=== PATIENT | female | born 1995 | race Caucasian/White ===

== ENCOUNTER 2016-05-03 15:32 | Outpatient (CLI) | payer MEDICAID ==
--- NOTE | 2016-05-03 16:00 | L&D Flow Sheet ---
LD Flowsheet Datetime Report Generated by CPN: 05/03/2016 16:00 Datetime: 05/03/2016 15:48 Vital Signs NBP Sys/Marcie/Mean (mmHg): 111 (QS system process) : 68 (QS system process) : 83 (QS system process) Pulse: 100 (QS system process)
[2016-05-03 16:12] LABS: APPEARANCE,URINE CLOUDY; BILIRUBIN,URINE NEGATIVE (NEGATIVE); GLUCOSE, URINE NEGATIVE (NEGATIVE); KETONES,URINE NEGATIVE (NEGATIVE); LEUKOCYTE ESTERASE,URINE LARGE (NEGATIVE); NITRITE,URINE NEGATIVE (NEGATIVE); PROTEIN,URINE NEGATIVE (NEGATIVE); URINE SPECIFIC GRAVITY 1.019; UROBILINOGEN,URINE NEGATIVE mg/dL (<2.0)
[2016-05-03 16:14] LABS: AMNISURE (ROM) NEGATIVE (NEGATIVE)
--- NOTE | 2016-05-03 16:14 | Non Stress Test Report ---
Non Stress Test Datetime Report Generated by CPN: 05/03/2016 16:14 DEMOGRAPHIC Test Number: 1 EGA NST: 38.6 INDICATION Indication for Study: Ordered by Provider Indication for Study (NST) Other: LC MONITORING Monitor Explained: Monitor Explained; Test Explained; Patient Verbalized Understanding Time on Monitor: 05/03/2016 15:47 Time off Monitor: 05/03/2016 16:12 NST Duration: 25 NST INTERVENTIONS NST Interventions: PO Hydration Physician Notified NST: CROWELL BABY A: [id number] BABY A Movement : Present Contraction Frequency : none FHR Baseline : 130 Accelerations : 15X15 Variability : Moderate 6-25bpm NST Review: Meets Criteria for Reactive NST NST Review and Verified By : S AMANUEL RN NST Results: Reactive NST REPORT Report Trigger: Send Report
[2016-05-03 16:29] LABS: URINE BARBITURATES SCREEN NEGATIVE; URINE METHADONE SCREEN NEGATIVE; URINE OPIATES LOW NEGATIVE; URINE PHENCYCLIDINE SCREEN NEGATIVE
== END 2016-05-03 16:43 | disposition home or self-care (01) ==
LOC: LC 15:32
PROVIDERS: ATTEND Obstetrics & Gynecology
PROC: 4A1HXCZ Monitoring of Products of Conception, Cardiac Rate, External Approach (ICD-10-PCS; principal; 2016-05-03)
DX: O47.1 False labor at or after 37 completed weeks of gestation (principal); Z3A.38 38 weeks gestation of pregnancy
CPT/HCPCS: 59025; 84112; 81005; 80307; G0480 ×2

== ENCOUNTER 2016-05-10 06:22 | Inpatient (IN) | payer MEDICAID ==
[2016-05-10 07:11] LABS: APPEARANCE,URINE SLIGHTLY-CLOUDY; BILIRUBIN,URINE NEGATIVE (NEGATIVE); GLUCOSE, URINE NEGATIVE (NEGATIVE); KETONES,URINE NEGATIVE (NEGATIVE); LEUKOCYTE ESTERASE,URINE SMALL (NEGATIVE); NITRITE,URINE NEGATIVE (NEGATIVE); PROTEIN,URINE NEGATIVE (NEGATIVE); URINE SPECIFIC GRAVITY 1.013; UROBILINOGEN,URINE NEGATIVE mg/dL (<2.0)
[2016-05-10 07:27] LABS: URINE BARBITURATES SCREEN NEGATIVE; URINE METHADONE SCREEN NEGATIVE; URINE OPIATES LOW NEGATIVE; URINE PHENCYCLIDINE SCREEN NEGATIVE
--- NOTE | 2016-05-10 08:01 | L&D Flow Sheet ---
LD Flowsheet Datetime Report Generated by CPN: 05/10/2016 08:00 Datetime: 05/10/2016 07:27 Level of Consciousness: Fully Conscious (Nancy Orourke, RN) DTR's/Clonus: DTRs 2+; No Clonus (Nancy Orourke, RN) Headache: Denies (Nancy Orourke, RN) Breath Sounds, Left: Clear and Equal (Nancy Orourke, RN) Breath Sounds, Right: Clear and Equal (Nancy Orourke, RN) Nausea/Vomiting: Denies (Nancy Orourke, RN) RUQ Epigastric Pain: Denies (Nancy Orourke, RN) Datetime: 05/10/2016 07:10 Communication: Report Given to @ Erick Orourke RN (Sonia Hai, RN) Datetime: 05/10/2016 07:00 Monitor Mode: External (Sonia Hai, RN) Frequency (min): 2-3 (Sonia Hai, RN) Quality: Mild/Moderate (Sonia Hai, RN) Duration (sec): 50-90 (Sonia Hai, RN) Resting Tone (Palpate): Relaxed (Sonia Hai, RN) Monitor Mode: External US (Sonia Hai, RN) FHR Baseline Rate : 125 (Sonia Hai, RN) Variability: Moderate 6-25 bpm (Sonia Hai, RN) Accelerations: 15X15 (Sonia Hai, RN) Decelerations: None (Sonia Hai, RN) Datetime: 05/10/2016 06:47 I/O Interventions: Popsicle (Sonia Hai, RN) Datetime: 05/10/2016 06:45 Monitor Mode: External; Palpation (Sonia Valles RN) Frequency (min): 1.5-5 (Sonia Valles RN) Frequency (min): Q10 per pt, getting closer and stronger (Sonia Valles RN) Quality: Mild/Moderate (Sonia Valles RN) Duration (sec): 60-100 (Sonia Valles RN) Resting Tone (Palpate): Relaxed (Sonia Valles RN) Monitor Mode: External US (Sonia Valles RN) FHR Baseline Rate : 135 (Sonia Valles RN) Variability: Moderate 6-25 bpm (Sonia Valles RN) Accelerations: 10X10 (Sonia Valles RN) Decelerations: None (Sonia Valles RN) Pain Scale: 3 (Sonia Valles RN) Pain Presence: None/Denies (Sonia Valles RN) Pain Type: Contraction (Sonia Valles RN) Pain Location: Abdomen; Back (Sonia Valles, SAMANTA) Pain Coping: Talking Through Contractions; Breathing Through Contractions (Sonia Valles RN) Membrane Status: Intact (Sonia Valles RN) Vaginal Bleeding: None (Sonia Valles RN) Level of Consciousness: Fully Conscious (Sonia Valles RN) DTR's/Clonus: DTRs 2+; No Clonus (Sonia Valles RN) Headache: Denies (Sonia Valles SAMANTA) Breath Sounds, Left: Clear and Equal (Sonia Valles, RN) Breath Sounds, Right: Clear and Equal (Sonia Valles, RN) Nausea/Vomiting: Denies (Sonia Valles, RN) RUQ Epigastric Pain: Denies (Sonia Valles RN) Comfort Measures: Breathing/Relaxation (Sonia Valles, RN) Instructional Method: Verbal; Patient Instructed; Family/Support Person Instructed; Verbalized Understanding (Sonia Valles RN) Plan of Care: Plan of Care Discussed (Sonia Valles RN) Datetime: 05/10/2016 06:41 NBP Sys/Marcie/Mean (mmHg): 119 (QS system process) : 88 (QS system process) : 100 (QS system process) Pulse: 105 (QS system process) Respirations: 15 (Sonia Hai, RN) Temperature (F): 97.7 (Sonia Hai, RN) Temperature (C): 36.5 (QS system process) Datetime: 05/10/2016 06:40 Dilatation (cm): 3.5 (Sonia Valles RN) Effacement (%): 50 (Sonia Valles RN) Station: -2 (Sonia Valles RN) Exam by: Sina Valles RN (Sonia Valles RN) Vaginal Bleeding: None (Sonia Valles RN) Cervix, Consistency: Soft (Sonia Valles RN) Cervix, Position: Anterior (Sonia Valles RN) Dilatation (cm): 3-4 cms (Sonia Valles RN) Effacement: 40-50_ effaced (Sonia Valles RN) Station: minus 2 (Sonia Valles RN) Consistency: Soft (Sonia Valles RN) Position: Anterior (Sonia Valles RN) Total Andrews's Score: 8 (QS system process) : 5-8 = Small percentage of induction failure (QS system process)
[2016-05-10] MEDS ORDERED: RINGERS SOLUTION,LACTATED 1,000 ML IV PRN (09:38)
[2016-05-10] MEDS ORDERED: RINGERS SOLUTION,LACTATED 1,000 ML IV ONE (09:38)
[2016-05-10] MEDS ORDERED: BUPIVACAINE HCL 0.25 % INJ/PF (2.5 MG/1 ML) 30 ML VIAL INFIL ONE (09:40)
[2016-05-10] MEDS ORDERED: BENZOIN/ALOE VERA/STORAX/TOLU TINCTURE 60 ML TP PRN (09:40)
[2016-05-10] MEDS ORDERED: FENTANYL/BUPIVACAINE/NS/PF 100 ML EPI PRN (09:40)
[2016-05-10 10:10] LABS: ABSOLUTE EOSINOPHILS # (AUTO) 0.2 10^3/uL (0.0-0.6); ABSOLUTE LYMPHOCYTES (AUTO) 1.5 10^3/uL (0.5-4.7); ABSOLUTE MONOCYTES (AUTO) 0.6 10^3/uL (0.1-1.4); BASOPHILS % (AUTO) 0.4 % (0-2); EOSINOPHILS % (AUTO) 1.3 % (0-6); HEMATOCRIT 33.2 % (36.0-47.0); HGB HCT DIFFERENCE -0.2; LYMPHOCYTES % (AUTO) 12.3 % (13-45); MEAN CORPUSCULAR HEMOGLOBIN 26.8 pg (27.0-33.4); MEAN CORPUSCULAR HGB CONC 33.1 g/dL (32.0-36.0); MEAN CORPUSCULAR VOLUME 81 fl (80-97); MONOCYTES % (AUTO) 4.6 % (3-13); RED BLOOD COUNT 4.09 10^6/uL (3.72-5.28); RED CELL DISTRIBUTION WIDTH 14.7 % (11.5-14.0); SEGMENTED NEUTROPHILS % (AUTO) 81.4 % (42-78); WHITE BLOOD COUNT 12.3 10^3/uL (4.0-10.5)
[2016-05-10] MEDS ORDERED: BUPIVACAINE HCL 0.25 % INJ/PF (2.5 MG/1 ML) 30 ML VIAL ONE (10:20)
[2016-05-10] MEDS ORDERED: FENTANYL/BUPIVACAINE/NS/PF 200 MCG/100 ML RTUINJ EPI ONE (10:20)
[2016-05-10] MEDS ORDERED: EPHEDRINE SULFATE INJ 50 MG/1 ML AMPULE ONE (10:20)
[2016-05-10] MEDS ORDERED: MISOPROSTOL 0.2 MG TABLET ONE (11:56)
[2016-05-10] MEDS ORDERED: LIDOCAINE 1% INJ-PF (10 MG/ML) 30 ML SDV ONE (11:56)
[2016-05-10] MEDS ORDERED: OXYTOCIN/NORMAL SALINE 20 UNIT/1,000 ML RTUINJ ONE (11:57)
[2016-05-10] MEDS ORDERED: DIPH/PERTUSS(ACELL)/TETANUS VAC/PF 0.5 ML SYR (>=10YO) IM PRN (14:25)
[2016-05-10] MEDS ORDERED: ZOLPIDEM TARTRATE 5 MG TABLET PO PRN (14:25)
[2016-05-10] MEDS ORDERED: MEASLES,MUMPS&RUBELLA VACC/PF 0.5 ML VIAL SUBCUT PRN (14:25)
[2016-05-10] MEDS ORDERED: ACETAMINOPHEN WITH CODEINE #3 TABLET PO PRN ×2 (14:25)
[2016-05-10] MEDS ORDERED: OXYTOCIN/NORMAL SALINE 1,000 ML IV PRN (14:25)
--- NOTE | 2016-05-10 14:35 | Admission Physical ---
Datetime Report Generated by CPN: 05/10/2016 14:35 CURRENT ADMISSION Chief Complaint: Uterine Contractions Indication for Induction: Not Applicable Admit Plan: Initiate Labor Protocol Admit Plan- Other: asthma MJ use ALLERGIES Medication Allergies: No Medication Allergies: lactose (05/10/2016); gluten (05/10/2016) Medication Allergies: lactose (02/10/2016); gluten (02/10/2016) Medication Allergies: lactose (03/14/2015); gluten (03/14/2015) Latex: No Latex Allergies Food Allergies: gluten sensitivity OBSTETRICAL HISTORY EDC: 05/11/2016 00:00 : 3 Para: 1 IAB: 1 Livin Gestational Diabetes: No Rh Sensitization: No Incompetent Cervix: No BRISEYDA: No Infertility: No ART Treatment: No Uterine Anomaly: No IUGR: No Hx Previous C/S: No Macrosomia: No Hx Loss/Stillborn: No PIH: No Hx : No Placenta Previa/Abruption: No Depression/PP Depression: No PTL/PROM: No Post Hemorrhage: No Current Procedures: Ultrasound; NST Obstetrical History Comments: G1: 2014 37wks 6.5# M [facility] G2: 03/2015 EAB Ovarian Cyst/ Kidney Infection G3: Current SEE RECORDS Alcohol: No Marijuana : Yes Cocaine: No Other Illicit Drugs: No Cigarettes: Current Everyday Smoker. 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 Surgery: No Heart Disease: No Hosp/Surgery: Yes Autoimmune Disorder: No Anesthetic Complications: No Kidney Disease: No Abnormal Pap Smear: No Neuro/Epilepsy: No Psychiatric Disorders: No Other Medical Diseases: No Hepatitis/Liver Disease: No Significant Family History: No Varicosities/Phlebitis: No Trauma/Violence : No Thyroid Dysfunction: No Medical History Comments: Asthma, Smoker, THC use, Ovarian Cysts, Hospitalization for previous childbirth INFECTIOUS HISTORY Gonorrhea: No Genital Herpes: No Chlamydia: No Tuberculosis: No Syphilis: No Hepatitis: No HIV/AIDS Exposure: No Rash or Viral Illness: No Infectious History Comments: BV PHYSICAL EXAM General: Normal HEENT: Deferred Neurologic: Normal Thyroid: Deferred Heart: Normal Lungs: Normal Breast: Deferred Back: Deferred Abdomen: Normal Genitourinary Exam: Normal Extremities: Normal DTRs: Deferred Pelvic Type: Adequate Physical Exam Comments: cervix exam per RN Vital Signs: Reviewed VAGINAL EXAM Dilatation: 5 MEMBRANES Membranes: Intact FETUS A EGA: 39.6 FHR- Baseline: 120 Variability: Moderate 6-25bpm Decelerations: None Presentation: Vertex Admit Comment: desires epidural PLANS FOR LABOR AND DELIVERY Labor and Delivery: None Pain Management: Epidural Feeding Preference: Formula Benefit of Breast Feed Discussed: Yes Circumcision: N/A INFORMED CONSENT Assignment: Danica Henderson MD Signature: with User ID: Donta : with User ID: [email or web address]
[2016-05-10] MEDS: FERROUS SULFATE 325 MG TABLET PO SCH (17:53)
[2016-05-10] MEDS: DOCUSATE SODIUM 100 MG CAPSULE PO SCH (17:53)
--- NOTE | 2016-05-10 19:01 | L&D Flow Sheet ---
LD Flowsheet Datetime Report Generated by CPN: 05/10/2016 19:00 Datetime: 05/10/2016 14:50 Pain Scale: 0 (Nancy Sharad, RN) Pain Presence: None/Denies (Nancy Sharad, RN) Pain Type: N/A (Nancy Sharad, RN) Datetime: 05/10/2016 13:45 NBP Sys/Marcie/Mean (mmHg): 122 (QS system process) : 71 (QS system process) : 89 (QS system process) Pulse: 103 (QS system process) Datetime: 05/10/2016 13:30 NBP Sys/Marcie/Mean (mmHg): 121 (QS system process) : 67 (QS system process) : 87 (QS system process) Pulse: 96 (QS system process) Datetime: 05/10/2016 13:15 NBP Sys/Marcie/Mean (mmHg): 113 (QS system process) : 68 (QS system process) : 84 (QS system process) Pulse: 77 (QS system process) Datetime: 05/10/2016 13:00 NBP Sys/Marcie/Mean (mmHg): 111 (QS system process) : 61 (QS system process) : 81 (QS system process) Pulse: 85 (QS system process) Datetime: 05/10/2016 12:45 NBP Sys/Marcie/Mean (mmHg): 111 (QS system process) : 55 (QS system process) : 76 (QS system process) Pulse: 85 (QS system process) Datetime: 05/10/2016 12:30 NBP Sys/Marcie/Mean (mmHg): 105 (QS system process) : 58 (QS system process) : 78 (QS system process) Pulse: 93 (QS system process) Datetime: 05/10/2016 12:15 NBP Sys/Marcie/Mean (mmHg): 111 (QS system process) : 71 (QS system process) : 87 (QS system process) Pulse: 100 (QS system process) Respirations: 16 (Nancy Orourke RN) Temperature Route: Oral (Nancy Orourke RN) Pain Scale: 0 (Nancy Orourke RN) Pain Presence: None/Denies (Nancy Orourke RN) Pain Type: N/A (Nancy Orourke RN) Pain Goal: 1 (Nancy Orourke RN) Pain Relief Measures: Comfort Measures (Nancy Orourke RN) Datetime: 05/10/2016 12:10 Stage of : Recovery (Nancy Orourke RN) Datetime: 05/10/2016 12:00 Monitor Mode: External; Palpation (Nancy Orourke RN) Frequency (min): 2-3 (Nancy Orourke RN) Quality: Moderate (Nancy Sharad, RN) Duration (sec): 60-80 (Nancy Orourke, RN) Duration Criteria: Less than Two 120 Second Contractions (Nancy Orourke, RN) Pattern: Normal: <= 5 Contractions in 10 Minutes (Nancy Orourke, RN) Resting Tone (Palpate): Relaxed (Nancy Orourke, RN) Monitor Mode: External US (Nancy Orourke, RN) FHR Baseline Rate : 130 (Nancy Orourke, RN) FHR Baseline Changes: No Baseline Change (Nancy Orourke, RN) Variability: Moderate 6-25 bpm (Nancy Orourke, RN) Accelerations: 15X15 (Nancy Orourke, RN) Decelerations: None (Nancy Orourke, RN) Datetime: 05/10/2016 11:57 Pushing: Coached on Pushing; Urge to Push (Nancy Orourke, RN) Pushing Position: Pushing with Contractions; Pushing Lithotomy (Nancy Orourke, RN) Pushing Progress: Descent with Pushing; Presenting Part Visible (Nancy Orourke, RN) Datetime: 05/10/2016 11:56 Communication Comments: bed broken down (Nancy Orourke, RN) Datetime: 05/10/2016 11:54 Communication Comments: RN to remain at bedside continuosly monitoring FHR and adjusting monitors (Nancy Orourke, RN) Communication Comments: Jama AlvarengaTEODORO at bedside (Nancy Orourke, RN) Datetime: 05/10/2016 11:51 Dilatation (cm): 10.0 (Nancy Orourke, RN) Effacement (%): 100 (Nancy Orourke, RN) Station: 2 (Nancy Orourke, RN) Exam by: Cat Sharad, RN (Nancy Orourke, RN) Datetime: 05/10/2016 11:45 NBP Sys/Marcie/Mean (mmHg): 104 (QS system process) : 56 (QS system process) : 74 (QS system process) Pulse: 85 (QS system process) Datetime: 05/10/2016 11:31 NBP Sys/Marcie/Mean (mmHg): 120 (QS system process) : 71 (QS system process) : 81 (QS system process) Pulse: 102 (QS system process) Datetime: 05/10/2016 11:30 Monitor Mode: External; Palpation (Nancy Orourke RN) Frequency (min): 2.5-3 (Nancy Orourke RN) Quality: Mild/Moderate (Nancy Orourke RN) Duration (sec): 60-80 (Nancy Orourke RN) Duration Criteria: Less than Two 120 Second Contractions (Nancy Orourke RN) Pattern: Normal: <= 5 Contractions in 10 Minutes (Nancy Orourke RN) Resting Tone (Palpate): Relaxed (Nancy Orourke RN) Monitor Mode: External US (Nancy Orourke RN) FHR Baseline Rate : 130 (Nancy Orourke RN) FHR Baseline Changes: No Baseline Change (Nancy Orourke RN) Variability: Moderate 6-25 bpm (Nancy Orourke RN) Accelerations: 15X15 (Nancy Orourke RN) Decelerations: None (Nancy Orourke RN) Datetime: 05/10/2016 11:17 Membrane Status: Ruptured (Nancy Orourke RN) Membranes Rupture Method: Spontaneous (Nancy Orourke RN) Amniotic Fluid Color: Clear (Nancy Orourke, SAMANTA) Amniotic Fluid Amount: Small (Nancy Orourke RN) Amniotic Fluid Odor: Normal (Nancy OrourkeSAMANTA) Datetime: 05/10/2016 11:15 NBP Sys/Marcie/Mean (mmHg): 103 (QS system process) : 62 (QS system process) : 77 (QS system process) Pulse: 91 (QS system process) Datetime: 05/10/2016 11:01 Patient Position/Activity: Left Tilt; Low Fowlers (Nancy Orourke, SAMANTA) Datetime: 05/10/2016 11:00 NBP Sys/Marcie/Mean (mmHg): 119 (QS system process) : 70 (QS system process) : 89 (QS system process) Pulse: 122 (QS system process) Monitor Mode: External; Palpation (Nancy Orourke RN) Frequency (min): 3-4 (Nancy Orourke RN) Quality: Mild/Moderate (Nancy Orourke RN) Duration (sec): 60-120 (Nancy Orourke RN) Duration Criteria: Less than Two 120 Second Contractions (Nancy Orourke RN) Pattern: Normal: <= 5 Contractions in 10 Minutes (Nancy Orourke RN) Resting Tone (Palpate): Relaxed (Nancy Orourke RN) Monitor Mode: External US (aNncy Orourke RN) FHR Baseline Rate : 135 (Nancy Orourke RN) FHR Baseline Changes: No Baseline Change (Nancy Orourke RN) Variability: Moderate 6-25 bpm (Nancy Orourke RN) Accelerations: 15X15 (Nancy Orourke RN) Decelerations: None (Nancy Orourke RN) Datetime: 05/10/2016 10:59 NBP Sys/Marcie/Mean (mmHg): 145 (QS system process) : 87 (QS system process) : 107 (QS system process) Pulse: 114 (QS system process) Datetime: 05/10/2016 10:56 NBP Sys/Marcie/Mean (mmHg): 95 (QS system process) : 54 (QS system process) : 71 (QS system process) Pulse: 82 (QS system process) Datetime: 05/10/2016 10:55 NBP Sys/Marcie/Mean (mmHg): 94 (QS system process) : 52 (QS system process) : 67 (QS system process) Pulse: 96 (QS system process) Datetime: 05/10/2016 10:54 NBP Sys/Marcie/Mean (mmHg): 113 (QS system process) : 68 (QS system process) : 82 (QS system process) Pulse: 97 (QS system process) I/O Interventions: Mares Cath Inserted (Nancy Sharad, RN) Datetime: 05/10/2016 10:53 NBP Sys/Marcie/Mean (mmHg): 96 (QS system process) : 51 (QS system process) : 68 (QS system process) Pulse: 116 (QS system process) Datetime: 05/10/2016 10:52 NBP Sys/Marcie/Mean (mmHg): 101 (QS system process) : 56 (QS system process) : 72 (QS system process) Pulse: 102 (QS system process) Datetime: 05/10/2016 10:51 NBP Sys/Marcie/Mean (mmHg): 105 (QS system process) : 60 (QS system process) : 75 (QS system process) Pulse: 112 (QS system process) Datetime: 05/10/2016 10:50 NBP Sys/Marcie/Mean (mmHg): 111 (QS system process) : 65 (QS system process) : 81 (QS system process) Pulse: 100 (QS system process) Datetime: 05/10/2016 10:49 NBP Sys/Marcie/Mean (mmHg): 111 (QS system process) : 58 (QS system process) : 79 (QS system process) Pulse: 103 (QS system process) Datetime: 05/10/2016 10:48 NBP Sys/Marcie/Mean (mmHg): 117 (QS system process) : 71 (QS system process) : 87 (QS system process) Pulse: 106 (QS system process) Datetime: 05/10/2016 10:47 NBP Sys/Marcie/Mean (mmHg): 118 (QS system process) : 75 (QS system process) : 89 (QS system process) Pulse: 93 (QS system process) Datetime: 05/10/2016 10:46 NBP Sys/Marcie/Mean (mmHg): 117 (QS system process) : 72 (QS system process) : 87 (QS system process) Pulse: 96 (QS system process) Datetime: 05/10/2016 10:45 NBP Sys/Marcie/Mean (mmHg): 126 (QS system process) : 80 (QS system process) : 96 (QS system process) Pulse: 94 (QS system process) Pulse: 90 (QS system process) SpO2 (%): 100 (QS system process) Datetime: 05/10/2016 10:44 NBP Sys/Marcie/Mean (mmHg): 130 (QS system process) : 78 (QS system process) : 97 (QS system process) Pulse: 86 (QS system process) Datetime: 05/10/2016 10:43 NBP Sys/Marcie/Mean (mmHg): 128 (QS system process) : 83 (QS system process) : 102 (QS system process) Pulse: 94 (QS system process) Datetime: 05/10/2016 10:42 NBP Sys/Marcie/Mean (mmHg): 139 (QS system process) : 92 (QS system process) : 109 (QS system process) Pulse: 95 (QS system process) Datetime: 05/10/2016 10:41 NBP Sys/Marcie/Mean (mmHg): 130 (QS system process) : 74 (QS system process) : 96 (QS system process) Pulse: 88 (QS system process) Epidural Positioning: Sitting (aNncy Orourke RN) Epidural Procedure: Cath Placed; Test Dose (Nancy Orourke RN) Datetime: 05/10/2016 10:40 NBP Sys/Marcie/Mean (mmHg): 139 (QS system process) : 82 (QS system process) : 105 (QS system process) Pulse: 87 (QS system process) SpO2 (%): 100 (QS system process) Datetime: 05/10/2016 10:35 NBP Sys/Marcie/Mean (mmHg): 129 (QS system process) : 75 (QS system process) : 96 (QS system process) Pulse: 90 (QS system process) SpO2 (%): 100 (QS system process) Datetime: 05/10/2016 10:32 Pulse: 93 (QS system process) SpO2 (%): 94 (QS system process) Comments: tracing maternal HR, patient sitting for epidural, RN at bedside (Nancy Orourke RN) Procedure Verify: Correct Patient Identity; Correct Side and Site are Marked; Accurate Procedure Consent Form; Agreement on Procedure to be Done; Correct Patient Position; Relevant Images and Results are Properly Labeled and Displayed; Addressed Need to Administer Antibiotics or Fluids for Irrigation; Safety Precautions Based on Patient History or Medication Use (Nancy Orourke RN) Anesthesia Plans: Epidural (Nancy Orourke RN) Epidural Positioning: Sitting (Nancy Orourke RN) Datetime: 05/10/2016 10:31 Procedure Verify: Correct Patient Identity; Correct Side and Site are Marked; Accurate Procedure Consent Form; Agreement on Procedure to be Done; Correct Patient Position; Relevant Images and Results are Properly Labeled and Displayed; Addressed Need to Administer Antibiotics or Fluids for Irrigation; Safety Precautions Based on Patient History or Medication Use (Nancy Orourke RN) Anesthesia Plans: Epidural (Nancy Orourke RN) Datetime: 05/10/2016 10:30 Pulse: 93 (QS system process) SpO2 (%): 100 (QS system process) Monitor Mode: External; Palpation (Nancy Orourke RN) Frequency (min): 2.5-3.5 (Nancy Orourke RN) Quality: Mild/Moderate (Nancy Orourke RN) Duration (sec): 60-80 (Nancy Orourke, RN) Duration Criteria: Less than Two 120 Second Contractions (Nancy Orourke, RN) Pattern: Normal: <= 5 Contractions in 10 Minutes (Nancy Orourke, RN) Resting Tone (Palpate): Relaxed (Nancy Orourke, RN) Monitor Mode: External US (Nancy Orourke, RN) FHR Baseline Rate : 135 (Nancy Orourke, RN) FHR Baseline Changes: No Baseline Change (Nancy Orourke, SAMANTA) Variability: Moderate 6-25 bpm (Nancy Orourke, RN) Accelerations: 15X15 (Nancy Orourke, RN) Decelerations: None (Nancy Orourke, RN) Datetime: 05/10/2016 10:21 NBP Sys/Marcie/Mean (mmHg): 119 (QS system process) : 77 (QS system process) : 95 (QS system process) Pulse: 93 (QS system process) Datetime: 05/10/2016 10:04 Patient Care Comments: consents signed (Nancy Orourke RN) Datetime: 05/10/2016 10:00 Monitor Mode: External; Palpation (Nancy Orourke RN) Frequency (min): 3-4 (Nancy Orourke RN) Quality: Mild/Moderate (Nancy Orourke RN) Duration (sec): 70-80 (Nancy Orourke RN) Duration Criteria: Less than Two 120 Second Contractions (Nancy Orourke RN) Pattern: Normal: <= 5 Contractions in 10 Minutes (Nancy Orourke RN) Resting Tone (Palpate): Relaxed (Nancy Orourke RN) Monitor Mode: External US (Nancy Orourke RN) FHR Baseline Rate : 135 (Nancy Orourke RN) FHR Baseline Changes: No Baseline Change (Nancy Orourke RN) Variability: Moderate 6-25 bpm (Nancy Orourke RN) Accelerations: 15X15 (Nancy Orourke RN) Decelerations: None (Nancy Orourke RN) Patient Care Comments: labs drawn (Nancy Orourke RN) Procedure Verify: Correct Patient Identity; Accurate Procedure Consent Form; Agreement on Procedure to be Done; Correct Patient Position; Relevant Images and Results are Properly Labeled and Displayed; Addressed Need to Administer Antibiotics or Fluids for Irrigation; Safety Precautions Based on Patient History or Medication Use (Nancy Orourke RN) Anesthesia Plans: Epidural (Nancy Orourke RN) Datetime: 05/10/2016 09:51 NBP Sys/Marcie/Mean (mmHg): 127 (QS system process) : 81 (QS system process) : 96 (QS system process) Pulse: 89 (QS system process) Datetime: 05/10/2016 09:31 IV/Blood Work: IV Started; IV Bolus Started (Nancy Orourke RN) Datetime: 05/10/2016 09:30 Monitor Mode: External; Palpation (Nancy Sharad, RN) Frequency (min): 2-3 (Nancy Sharad, RN) Quality: Mild/Moderate (Nancy Sharad, RN) Duration (sec): 70-80 (Nancy Sharad, RN) Duration Criteria: Less than Two 120 Second Contractions (Nancy Sharad, RN) Pattern: Normal: <= 5 Contractions in 10 Minutes (Nancy Sharad, RN) Resting Tone (Palpate): Relaxed (Nancy Sharad, RN) Monitor Mode: External US (Nancy Sharad, RN) FHR Baseline Rate : 130 (Nancy Sharad, RN) FHR Baseline Changes: No Baseline Change (Nancy Sharad, RN) Variability: Moderate 6-25 bpm (Nancy Sharad, RN) Accelerations: 15X15 (Nancy Sharad, RN) Decelerations: None (Nancy Sharad, RN) Datetime: 05/10/2016 09:12 Communication Comments: order received from Jama Alvarenga CNM to admit patient (Nancy Sharad, RN) Datetime: 05/10/2016 09:11 Dilatation (cm): 5.0 (Nancy Orourke RN) Effacement (%): 80 (Nancy Orourke RN) Station: -2 (Nancy Orourke RN) Exam by: Cat Orourke RN (Nancy Orourke RN) Vaginal Bleeding: Scant (Nancy Orourke RN) Cervix, Consistency: Soft (Nancy Orourke RN) Cervix, Position: Midposition (Nancy Orourke RN) Datetime: 05/10/2016 08:08 NBP Sys/Marcie/Mean (mmHg): 111 (QS system process) : 76 (QS system process) : 89 (QS system process) Pulse: 97 (QS system process) Datetime: 05/10/2016 08:07 Dilatation (cm): 4.0 (Nancy Orourke RN) Effacement (%): 60 (Nancy Orourke RN) Station: -2 (Nancy Orourke RN) Exam by: Cat Orourke RN (Nancy Orourke, SAMANTA) Vaginal Bleeding: Scant (Nancy Orourke, RN) Cervix, Consistency: Soft (Nancy Orourke, RN) Cervix, Position: Midposition (Nancy Orourke, RN) Datetime: 05/10/2016 07:27 Level of Consciousness: Fully Conscious (Nancy Orourke, RN) DTR's/Clonus: DTRs 2+; No Clonus (Nancy Orourke, RN) Headache: Denies (Nancy rOourke, RN) Breath Sounds, Left: Clear and Equal (Nancy Orourke RN) Breath Sounds, Right: Clear and Equal (Nancy Orourke RN) Nausea/Vomiting: Denies (Nancy Orourke, RN) RUQ Epigastric Pain: Denies (Nancy Orourke, RN) Datetime: 05/10/2016 07:20 Communication Comments: monitors removed for patient ambulation (Nancy Orourke, RN) Datetime: 05/10/2016 07:10 Communication: Report Given to @ [facility] RN (Sonia Hai, RN) Datetime: 05/10/2016 07:00 Monitor Mode: External (Sonia Hai, RN) Frequency (min): 2-3 (Sonia Hai, RN) Quality: Mild/Moderate (Sonia Hai, RN) Duration (sec): 50-90 (Sonia Hai, RN) Resting Tone (Palpate): Relaxed (Sonia Hai, RN) Monitor Mode: External US (Sonia Hai, RN) FHR Baseline Rate : 125 (Sonia Hai, RN) Variability: Moderate 6-25 bpm (Sonia Hai, RN) Accelerations: 15X15 (Sonia Hai, RN) Decelerations: None (Sonia Hai, RN)
[2016-05-10] MEDS: IBUPROFEN 800 MG TABLET PO SCH (22:21)
[2016-05-10] MEDS: HYDROCODONE/ACETAMINOPHEN 5-325 MG TABLET PO PRN (22:36)
[2016-05-11] MEDS: HYDROCODONE/ACETAMINOPHEN 5-325 MG TABLET PO PRN ×4 (03:19→20:20)
--- NOTE | 2016-05-11 06:01 | L&D Current Admission ---
Current Admit Datetime Report Generated by CPN: 05/11/2016 06:00 ADMISSION INFORMATION Current Admit Date/Time: 05/10/2016 09:30 (05/10/2016 06:45:Nancy Orourke RN) Reason for Admission: Onset of Labor (05/10/2016 06:45:Nancy Orourke RN) Chief Complaint: Contractions (05/10/2016 06:45:oSnia Valles RN) Medications During : Albuterol MDI; Vitamin (05/10/2016 06:45:Nancy Orourke RN) EGA per Dates: 39.6 (05/10/2016 06:45:QS system process) Admitted From: Home (05/10/2016 06:45:Nancy Orourke RN) Reason for Induction: Not Applicable (05/10/2016 06:45:Nancy Orourke RN) Records Available: Yes (05/10/2016 06:45:Nancy Orourke RN) General Admission Information: Reviewed (05/10/2016 06:45:Nancy Orourke RN) BELONGINGS/ADVANCED DIRECTIVES Valuables/Personal Effects: Purse/Wallet; Cell Phone (05/10/2016 06:45:Nancy Orourke RN) Disposition of Belongings: Kept with Patient (05/10/2016 06:45:Nancy Orourke RN) Advance Direct for Healthcare: No, and Wants No Information (05/10/2016 06:45:Nancy Orourke RN) Durable Power of Foley Artist: No (05/10/2016 06:45:Nancy Orourke RN) Living Will: No (05/10/2016 06:45:Nancy Orourke RN) Organ Donor: No (05/10/2016 06:45:Nancy Orourke RN) Pt Rights Information Given: Yes (05/10/2016 06:45:Nancy Orourke RN) LEARNING ASSESSMENT Knowledge Level: Understands L_D Process (05/10/2016 06:45:Nancy Orourke RN) Learning Readiness: Motivated (05/10/2016 06:45:Nancy Orourke RN) DOMESTIC VIOLANCE SCREENING Dom Viol Threatened/Hurt: No (05/10/2016 06:45:Nancy Orourke RN) Hx of Abuse/Neglect past 2yrs: No (05/10/2016 06:45:Nancy Orourke RN) Feel Unsafe Going Home: No (05/10/2016 06:45:Nancy Orourke RN) Addt'l Observ Indicating Abuse: No (05/10/2016 06:45:Nancy Orourke RN) Reason Unable to Complete Screen: N/A, Screen Completed (05/10/2016 06:45:Nancy Orourke RN) Considered Personal Harm/Suicide: No (05/10/2016 06:45:Nancy Orourke RN) NUTRITIONAL/FUNCTIONAL SCREENING Problem with Appetite >5 Days: No (05/10/2016 06:45:Nancy Orourke RN) Chew/Swallow Difficulties: No (05/10/2016 06:45:Nancy Orourke RN) Inappropriate Wt Gain/Loss: No (05/10/2016 06:45:Nancy Orourke RN) Presence Skin Breakdown/Ulcer: No (05/10/2016 06:45:Nancy Orourke RN) Special Diet: No (05/10/2016 06:45:Nancy Sharad, RN) Pt Requests Broodmare Foreman Visit: No (05/10/2016 06:45:Nancy Orourke RN) Hx of Any of the Following?: N/A (05/10/2016 06:45:Nancy Orourke RN) New Diagnosis of: N/A (05/10/2016 06:45:Nancy Orourke RN) Requires Assist w/Ambulation: No (05/10/2016 06:45:Nancy Orourke RN) Uses Assist Device to Ambulate: No (05/10/2016 06:45:Nancy Orourke RN) Pt Requires Help w/ADL's: No (05/10/2016 06:45:Nancy Orourke RN)
--- NOTE | 2016-05-11 06:01 | L&D General Admission ---
General Admit Datetime Report Generated by CPN: 05/11/2016 06:00 INFORMATION Patient Age: 20 (02/10/2016 12:18:QS system process) EDC: 05/11/2016 00:00 (02/10/2016 12:27:Nancy Orourke RN) : 3 (02/10/2016 12:27:Nancy Orourke RN) Para: 1 (02/10/2016 12:27:Nancy Orourke RN) Induced Abortions: 1 (02/10/2016 12:27:Geovany Lancaster RN) Livin (02/10/2016 12:27:Geovany Lancaster RN) Baby, Number in Womb: 1 (02/10/2016 12:27:Geovany Lancaster RN) CARE Primary Project Structural Engineer: [facility] Department (02/10/2016 12:27:Geovany Lancaster RN) Project Structural Engineer Other: [facility] (02/10/2016 12:27:Geovany Lancaster RN) Month of 1st Visit: November (02/10/2016 12:27:Geovany Lancaster RN) Prepregnancy Weight (lb): 130 (02/10/2016 12:27:Geovany Lancaster RN) Prepregnancy Weight (kg): 59.1 (02/10/2016 12:27:QS system process) Height (in): 67 (05/10/2016 16:30:QS system process) ALLERGIES Medication Allergy: No (02/10/2016 12:27:Nancy Orourke RN) Medication Allergies: lactose (05/10/2016); gluten (05/10/2016) (05/10/2016 06:32:QS system process) Latex Allergy: No Latex Allergies (02/10/2016 12:27:Nancy Orourke RN) Food Allergies: gluten sensitivity (02/10/2016 12:27:Nancy Orourke RN) COMMUNICATION Primary Language: Ukrainian (02/10/2016 12:27:Sonia Valles RN) Medical Tx Preferred Language: Ukrainian (02/10/2016 12:27:Sonia Valles RN) DEMOGRAPHICS Address: [address] [place] [id number] (05/03/2016 16:05:QS system process) Zipcode: [address] (05/03/2016 16:05:QS system process) Home (05/03/2016 15:33:QS system process) SSN: [id number] (02/10/2016 12:18:QS system process) Next of Kin Name: WILIAN LOJA (02/10/2016 12:18:QS system process) Next of Kin (05/03/2016 16:05:QS system process) Next of Kin Relationship: OR (02/10/2016 12:18:QS system process) Date of : 1995 (02/10/2016 12:18:QS system process) Marital Status: Single (02/10/2016 12:18:QS system process) Sex: Female (02/10/2016 12:18:QS system process) Race: (02/10/2016 12:18:QS system process) Ethnicity: Non- or (02/10/2016 12:18:QS system process) Presybeterian: None (02/10/2016 12:18:QS system process) DRUG AND ALCOHOL USE Alcohol: No (02/10/2016 12:27:Nancy Orourke RN) Cigarettes: Current Everyday Smoker. [id number] (02/10/2016 12:27:Sonia Valles RN) Marijuana: Yes (02/10/2016 12:27:Nancy Orourke RN) Cocaine: No (02/10/2016 12:27:Nancy Orourke RN) Other Illicit Drugs: No (02/10/2016 12:27:Nancy Orourke RN) VACCINE HISTORY Influenza Vaccine: Yes (02/10/2016 12:27:Sonia Valles RN) Pneumococcal Vaccine: No (02/10/2016 12:27:Sonia Valles RN) Tetanus Vaccine: Yes (02/10/2016 12:27:Sonia Valles RN) Tdap Vaccine: Yes (02/10/2016 12:27:Sonia Valles RN) Hepatitis B Vaccine: Yes (02/10/2016 12:27:Sonia Valles RN) Feeding Preference: Formula (02/10/2016 12:27:Sonia Valles RN) Benefit of Breast Feed Discussed: Yes (02/10/2016 12:27:Sonia Valles RN) Circumcision: N/A (02/10/2016 12:27:Nancy Orourke RN) Classes Attended: No (02/10/2016 12:27:Nancy Orourke RN) Tubal Ligation: No (02/10/2016 12:27:Nancy Orourke RN) Tubal Authorization Signed: N/A (02/10/2016 12:27:Nancy Orourke RN) Consent: N/A (02/10/2016 12:27:Nancy Orourke RN) Consent Signed: N/A (02/10/2016 12:27:Nancy Orourke RN) Pain Management Plans: Epidural (02/10/2016 12:27:Nancy Orourke RN) Plans for Labor and Delivery: None (02/10/2016 12:27:Nancy Orourke RN) Support Person: Wilian Loja (02/10/2016 12:27:Sonia Valles RN) Support Person Relationship: Significant Other (02/10/2016 12:27:Sonia Valles RN) Cultural/Spritual Practice: No (02/10/2016 12:27:Nancy Orourke RN) Spir/Cult Dietary Needs: No (Annotations: Data stored by CPN on behalf of user) (02/10/2016 12:27:Nancy Orourke RN) LIVING SITUATION/DISCHARGE PLAN Living Arrangements: House (02/10/2016 12:27:Sonia Valles RN) Adequate Access to:: Electric; Heat; Refrigeration; Plumbing/Running water; Phone; Transportation (02/10/2016 12:27:Sonia Valles RN) WIC Program: No (02/10/2016 12:27:Sonia Valles RN) Discharge Overlay Plastician Person: Wilian Loja (02/10/2016 12:27:Sonia Valles RN) Person to Help after Discharge: Wilian Loja (02/10/2016 12:27:Sonia Valles RN) Car Seat for Discharge: Yes (02/10/2016 12:27:Sonia Valles RN) Adoption Requested: No (02/10/2016 12:27:Sonia Valles RN) Pt Contact w/ Post : N/A (02/10/2016 12:27:Sonia Valles RN) LABS Blood Type: A Positive (02/10/2016 12:27:Geovany Lancaster RN) Antibody Screen: NEGATIVE (02/10/2016 12:27:Geovany Lancaster RN) Hemoglobin: 12.0-15.5 g/dL (05/11/2016 06:00:QS system process) Hematocrit: 33.2 L (05/10/2016 09:58:QS system process) MCV: 81 (05/10/2016 09:58:QS system process) Group Beta Strep: NEGATIVE (02/10/2016 12:27:Geovany Lancaster RN) Gonorrhea: Negative (02/10/2016 12:27:Geovany Lancaster RN) Chlamydia: Negative (02/10/2016 12:27:Geovany Lancaster RN) RPR/VDRL: Nonreactive (02/10/2016 12:27:Geovany Lancaster RN) HIV Exposure Test: Negative (02/10/2016 12:27:Geovany Lancaster RN) Hepatitis B: Negative (02/10/2016 12:27:Geovany Lancaster RN) Rubella: Non-Immune (02/10/2016 12:27:Geovany Lancaster RN) Varicella: Non Immune (02/10/2016 12:27:Geovany Lancaster RN) OB/PREVIOUS HISTORY Previous Procedures: Ultrasound (02/10/2016 12:27:Nancy Orourke RN) Current Procedures: Ultrasound; NST (02/10/2016 12:27:Nancy Orourke RN) History of Previous : No (02/10/2016 12:27:Nancy Orourke RN) History of Gestational Diabetes: No (02/10/2016 12:27:Nancy Orourke RN) History of PIH: No (02/10/2016 12:27:Nancy Orourke RN) History of Incompetent Cervix: No (02/10/2016 12:27:Nancy Orourke RN) History of Placenta Previa/Abrup: No (02/10/2016 12:27:Nancy Orourke RN) History of Macrosomia: No (02/10/2016 12:27:Nancy Orourke RN) History of IUGR: No (02/10/2016 12:27:Nancy Orourke RN) History of Hemorrhage: No (02/10/2016 12:27:Nancy Orourke RN) History of Loss/Stillborn: No (02/10/2016 12:27:Nancy Orourke RN) History of : No (02/10/2016 12:27:Nancy Orourke RN) History of D (Rh) Sensitization: No (02/10/2016 12:27:Nancy Orourke RN) History Recurrent Loss/Stillborn: No (02/10/2016 12:27:Nancy Orourke RN) History Depression/PP Depression: No (02/10/2016 12:27:Nancy Orourke RN) History of Uterine Anomaly/BRISEYDA: No (02/10/2016 12:27:Nancy Orourke RN) History of Infertility: No (02/10/2016 12:27:Nancy Orourke RN) History of ART Treatment: No (02/10/2016 12:27:Nancy Orourke RN) History of BRISEYDA: No (02/10/2016 12:27:Nancy Orourke RN) Comments Obstetrical History: G1: 2014 37wks 6.5# M [facility] G2: 03/2015 EAB Ovarian Cyst/ Kidney Infection G3: Current (02/10/2016 12:27:Geovany Lancaster RN) MEDICAL HISTORY Med Hx Diabetes: No (02/10/2016 12:27:Nancy Orourke RN) Med Hx Hypertension: No (02/10/2016 12:27:Nancy Orourke RN) Med Hx Heart Disease: No (02/10/2016 12:27:Nancy Orourke RN) Med Hx Autoimmune Disorder: No (02/10/2016 12:27:Nancy Orourke RN) Med Hx Kidney Disease/UTI: No (02/10/2016 12:27:Nancy Orourke RN) Med Hx Neurologic/Epilepsy: No (02/10/2016 12:27:Nancy Orourke RN) Med Hx Psychiatric Disorders: No (02/10/2016 12:27:Nancy Orourke RN) Med Hx Hepatitis/Liver Disease: No (02/10/2016 12:27:Nancy Orourke RN) Med Hx Varicosities/Phlebitis: No (02/10/2016 12:27:Nancy Orourke RN) Med Hx Thyroid Dysfunction: No (02/10/2016 12:27:Nancy Orourke RN) Med Hx Trauma/Violence: No (02/10/2016 12:27:Nancy Orourke RN) Med Hx Blood Transfusion: No (02/10/2016 12:27:Nancy Orourke RN) Med Hx Pulmonary (Asthma,TB): Yes (02/10/2016 12:27:Geovany Lancaster RN) Med Hx Breast: No (02/10/2016 12:27:Nancy Orourke RN) Med Hx NETBACKUP ADMIN Surgery: No (02/10/2016 12:27:Nancy Orourke RN) Med Hx Hospitalization/Surgery: Yes (02/10/2016 12:27:Geovany Lancaster RN) Med Hx Anesthetic Complications: No (02/10/2016 12:27:Nancy Orourke RN) Med Hx Abnormal Pap Smear: No (02/10/2016 12:27:Nancy Orourke RN) Other Medical Diseases: No (02/10/2016 12:27:Nancy Orourke RN) Med Hx Significant Family Hx: No (02/10/2016 12:27:Nancy Orourke RN) Details of Med/Surg Hx: Asthma, Smoker, THC use, Ovarian Cysts, Hospitalization for previous childbirth (02/10/2016 12:27:Geovany Lancaster RN) INFECTIOUS HISTORY Inf Hx Gonorrhea: No (02/10/2016 12:27:Nancy Orourke RN) Inf Hx Chlamydia: No (02/10/2016 12:27:Nancy Orourke RN) Inf Hx Syphilis: No (02/10/2016 12:27:Nancy Orourke RN) Inf Hx HIV/AIDS: No (02/10/2016 12:27:Nancy Orourke RN) Inf Hx Pt/Partner Genital Herpes: No (02/10/2016 12:27:Nancy Orourke RN) Inf Hx Tuberculosis/Exposure: No (02/10/2016 12:27:Nancy Orourke RN) Inf Hx Hepatitis B,C: No (02/10/2016 12:27:Nancy Orourke RN) Inf Hx Rash or Viral Illness: No (02/10/2016 12:27:Nancy Orourke RN) Details of Infectious Hx: BV (02/10/2016 12:27:Geovany Lancaster RN) GENETIC HISTORY Gen Hx Age >=35 at HARITHA: No (02/10/2016 12:27:Nancy Orourke RN) Gen Hx Thalassemia: No (02/10/2016 12:27:Nancy Orourke RN) Gen Hx Congenital Heart Defect: No (02/10/2016 12:27:Nancy Orourke RN) Gen Hx Neural Tube Defect: No (02/10/2016 12:27:Nancy Orourke RN) Gen Hx Down's Syndrome: No (02/10/2016 12:27:Nancy Orourek RN) Gen Hx Lee-Sachs: No (02/10/2016 12:27:Nancy Orourke RN) Gen Hx Lorenza: No (02/10/2016 12:27:Nancy Orourke RN) Gen Hx Familial Dysautonomia: No (02/10/2016 12:27:Nancy Orourke RN) Gen Hx Sickle Cell Disease/Trait: No (02/10/2016 12:27:Nancy Orourke RN) Gen Hx Hemophilia/Blood Disorder: No (02/10/2016 12:27:Nancy Orourke RN) Gen Hx Muscular Dystrophy: No (02/10/2016 12:27:Nancy Orourke RN) Gen Hx Cystic Fibrosis: No (02/10/2016 12:27:Nancy Orourke RN) Gen Hx Huntingtons Chorea: No (02/10/2016 12:27:Nancy Orourke RN) Gen Hx Mental Retardation/Autism: No (02/10/2016 12:27:Nancy Orourke RN) Gen Hx Tested for Fragile X: No (02/10/2016 12:27:Nancy Orourke RN) Gen Hx Other Inher/Chromosomal: No (02/10/2016 12:27:Nancy Orourke RN) Gen Hx Maternal Metabolic DO: No (02/10/2016 12:27:Nancy Orourke RN) Gen Hx Pt Father or FOB Defect: No (02/10/2016 12:27:Nancy Orourke RN) Gen Hx Other Genetic History: No (02/10/2016 12:27:Nancy Orourke RN) Gen Hx Drugs/Meds since LMP: No (02/10/2016 12:27:Nancy Orourke RN)
[2016-05-11] MEDS: IBUPROFEN 800 MG TABLET PO SCH ×3 (06:05→22:04)
[2016-05-11 06:46] LABS: MEAN CORPUSCULAR HEMOGLOBIN 26.5 pg (27.0-33.4); MEAN CORPUSCULAR HGB CONC 32.4 g/dL (32.0-36.0); MEAN CORPUSCULAR VOLUME 82 fl (80-97); RED BLOOD COUNT 4.52 10^6/uL (3.72-5.28); RED CELL DISTRIBUTION WIDTH 14.7 % (11.5-14.0); WHITE BLOOD COUNT 13.1 10^3/uL (4.0-10.5)
[2016-05-11] MEDS: PRENATAL VITAMIN W-O CA NO5/FE FUMARATE/FA CAPSULE PO SCH (10:17)
[2016-05-11] MEDS: SENNOSIDES/DOCUSATE 8.6-50 MG 1 EACH TABLET PO SCH (10:18)
[2016-05-11] MEDS: DOCUSATE SODIUM 100 MG CAPSULE PO SCH ×2 (10:18→17:41)
[2016-05-11] MEDS: FERROUS SULFATE 325 MG TABLET PO SCH ×2 (10:20→17:41)
[2016-05-11] MEDS: BENZOCAINE/MENTHOL AEROSOL SPRAY 56 ML TOP PRN (10:36)
[2016-05-11] MEDS: DIBUCAINE 1% OINTMENT 28 GM TP PRN (10:36)
--- NOTE | 2016-05-11 11:09 | PDOC PROGRESS REPORT ---
Subjective-OB Subjective: Post Delivery Day: 21 year old. Denies any needs at this time. Pt doing well, ambulatory, reports light bleeding, regular diet and voiding well. No complaints. Physical Exam (OB) Vital Signs: Temp Pulse Resp BP Pulse Ox 98.1 F 66 18 127/81 H 100 05/11/16 08:07 05/11/16 08:07 05/11/16 08:07 05/11/16 08:07 05/11/16 08:07 Intake & Output 05/10/16 05/11/16 05/12/16 06:59 06:59 06:59 Weight 75 kg - Lochia Lochia Amount: Scant < 10 ml Lochia Color: Rubra/Red - Abdomen Description: Soft, Round Hernia Present: No Fundal Description: Firm, Midline Fundal Height: u/u - u/2 Objective-Diagnostic Laboratory: 05/11/16 06:24 05/11/16 06:24 WBC 13.1 H RBC 4.52 Hgb 12.0 Hct 37.0 MCV 82 MCH 26.5 L MCHC 32.4 RDW 14.7 H Plt Count 249 Assessment and Plan(PN) - Assessment and Plan (1) Vaginal delivery Is this a current diagnosis for this admission?: Yes - Time Spent with Patient Time with patient: Less than 15 minutes Medications reviewed and adjusted accordingly: Yes - Disposition Anticipated Discharge: Home Within: within 24 hours
[2016-05-12] MEDS: HYDROCODONE/ACETAMINOPHEN 5-325 MG TABLET PO PRN ×3 (00:21→09:18)
[2016-05-12] MEDS: IBUPROFEN 800 MG TABLET PO SCH (06:02)
[2016-05-12 09:07] VITALS: BP 123/77
[2016-05-12] MEDS: SENNOSIDES/DOCUSATE 8.6-50 MG 1 EACH TABLET PO SCH (09:14)
[2016-05-12] MEDS: DOCUSATE SODIUM 100 MG CAPSULE PO SCH (09:14)
[2016-05-12] MEDS: FERROUS SULFATE 325 MG TABLET PO SCH (09:15)
[2016-05-12] MEDS: PRENATAL VITAMIN W-O CA NO5/FE FUMARATE/FA CAPSULE PO SCH (09:15)
--- NOTE | 2016-05-12 10:59 | PDOC DISCHARGE SUMMARY ---
Final Diagnosis Discharge Date: 05/12/16 - Final Diagnosis (1) Vaginal delivery Is this a current diagnosis for this admission?: Yes Discharge Data - Discharge Medication Home Medications: Pnv95/Iron Fum/Folic Acid [ Caplet] 1 cap PO DAILY 02/10/16 Reason(s) for Admission: Onset of Labor Procedures: NST Intrapartum Procedure(s): Spontaneous Vaginal Delivery - Diagnosis Test Laboratory: Temp Pulse Resp BP Pulse Ox 98.1 F 66 18 127/81 H 100 05/11/16 08:07 05/11/16 08:07 05/11/16 08:07 05/11/16 08:07 05/11/16 08:07 05/10/16 05/10/16 05/11/16 06:30 09:58 06:24 RBC 4.09 4.52 Hgb 11.0 L 12.0 Hct 33.2 L 37.0 Urine Opiates Screen NEGATIVE - Discharge information/Instructions Discharge Activity: Balance Activity w/Rest, Pelvic Rest Discharge Diet: Regular Disposition: HOME, SELF-CARE Follow up with: [facility] in: 4, Weeks
[2016-05-12] MEDS: BENZOCAINE/MENTHOL AEROSOL SPRAY 56 ML TOP PRN (12:04)
[2016-05-12] MEDS: DIBUCAINE 1% OINTMENT 28 GM TP PRN (12:05)
--- NOTE | 2016-05-21 11:43 | Delivery Summary ---
Del Sum A-C Datetime Report Generated by CPN: 05/21/2016 11:43 ADMISSION DATA Chief Complaint: Uterine Contractions Indication for Induction: Not Applicable Admission Impression: Active Labor Admit Provider Comments: desires epidural DELIVERY PERSONNEL Delivery Doctor:: Susan Alvarenga CNM Anesthesiologist:: Shaheed Hanna MD Labor and Delivery Nurse:: Nancy Orourke RNrehab therapy manager Nurse:: GRAEME Fuller Public Relations Supervisor/PATRICE: Allyson Bowen ST MATERNAL INFORMATION Delivery Anesthesia: Epidural Medications After Delivery: Pitocin Bolus-Please Comment Meds After Delivery Comment: 20 units Pitocin in 1 L NS bolusing per order Estimated Blood Loss (ml): 150 Maternal Complications: None Provider Comments: SVDVF over intact perineum, vigorous, to mothers abd. Cord clamped x 2 cut per FOB. Placenta intact via cook. EBL 150ml. Apgars 8,9. No lacerations. LABOR SUMMARY EDC: 05/11/2016 00:00 No. Babies in Womb: 1 Attempted: No Labor Anesthesia: None LABOR INFORMATION Reason for Induction: Not Applicable Onset of Labor: 05/10/2016 08:07 Complete Dilatation: 05/10/2016 11:51 Group B Beta Strep: NEGATIVE Antibiotics # of Doses: 0 Name of Antibiotic Given: n/a Steroids Given: None Reason Steroids Not Administered: Not Applicable MEMBRANES Membranes Rupture Method: Spontaneous Rupture of Membranes: 05/10/2016 11:17 Length of Rupture (hr): 0.83 Amniotic Fluid Color: Clear Amniotic Fluid Amount: Small Amniotic Fluid Odor: Normal STAGES OF LABOR Stage 1 hr: 3 Stage 1 min: 44 Stage 2 hr: 0 Stage 2 min: 16 Stage 3 hr: 0 Stage 3 min: 4 Total Time in Labor hr: 4 Total Time in Labor min: 4 VAGINAL DELIVERY Episiotomy: None Laceration Extension: N/A Laceration Type: None Laceration Repair: Not Applicable Laceration Repair Note: no lacerations Sponge Count Correct: N/A Sharps Count Correct: N/A CSECTION DELIVERY Primary Indication: N/A Secondary Indication: N/A CSection Incidence: N/A Labor: N/A Elective: N/A CSection Incision: N/A BABY A INFORMATION Delivery Date/Time: 05/10/2016 12:07 Method of Delivery: Vaginal Born in Route : No : N/A Forceps: N/A Vacuum Extraction: N/A Shoulder Dystocia : No PRESENTATION/POSITION BABY A Presentation: Cephalic Cephalic Presentation: Vertex Vertex Position: Right Occipital Anterior Breech Presentation: N/A PLACENTA INFORMATION BABY A Placenta Delivery Time : 05/10/2016 12:11 Placenta Method of Delivery: Spontaneous Placenta Status: Delivered SCORES BABY A Heart Rate 1 min: >100 bpm Resp Effort 1 min: Good Cry Reflex Irritability 1 min: Cough or Sneeze or Pulls Away Muscle Tone 1 min: Active Motion Color 1 min: Blue/Pale SCORE 1 MIN: 8 Heart Rate 5 min: >100 bpm Resp Effort 5 min: Good Cry Reflex Irritability 5 min: Cough or Sneeze or Pulls Away Muscle Tone 5 min: Active Motion Color 5 min: Body [place], Extremities Blue SCORE 5 MIN: 9 INFORMATION BABY A Gestational Age at Delivery: 39.6 Gestational Status: Full Term- 39- 40.6 Weeks Outcome : Liveborn Infant Condition : Stable Infant Sex: Female IDENTIFICATION BABY A Infant Verification Date/Time: 05/10/2016 12:52 ID Band Number: [id number] Mother's Name Verified: Yes RN Verifying Infant: MVinny Sharad, RN, D. Agustin, RN WEIGHT/LENGTH BABY A Infant Birthweight (gm): 2945 Weight (lb): 6 Infant Weight (oz): 8 Length (in): 20.00 Infant Length (cm): 50.80 CORD INFORMATION BABY A No. Cord Vessels: 3 Nuchal Cord : N/A Cord Blood Taken: Yes-For Storage (Mom's Blood type +) Infant Suction: Mouth; Nose ASSESSMENT BABY A Complications: None Physical Findings at Delivery: Within Normal Limits Physical Findings- Other: rigid muscle tone Skin to Skin: Yes Skin to Skin Time (min): 20 BABY B INFORMATION : N/A SIGNATURES Assignment: Danica Henderson MD Signature: with User ID: [email or web address] : with User ID: [email or web address] : I was personally available for consultation and serving as supervising physician for the MLP.
== END 2016-05-12 12:22 | disposition home or self-care (01) | DRG 775 ==
LOC: LC 06:22 → LR 09:23 → 2S 14:34
PROVIDERS: ADMIT Obstetrics & Gynecology; ATTEND Obstetrics & Gynecology
PROC: 10E0XZZ Delivery of Products of Conception, External Approach (ICD-10-PCS; principal; 2016-05-10)
PROC: 4A1HXCZ Monitoring of Products of Conception, Cardiac Rate, External Approach (ICD-10-PCS; 2016-05-10)
PROC: 3E0234Z Introduction of Serum, Toxoid and Vaccine into Muscle, Percutaneous Approach (ICD-10-PCS; 2016-05-10)
DX: O99.334 Smoking (tobacco) complicating childbirth (principal); F17.200 Nicotine dependence, unspecified, uncomplicated; Z3A.39 39 weeks gestation of pregnancy; O99.324 Drug use complicating childbirth; O99.52 Diseases of the respiratory system complicating childbirth; J45.909 Unspecified asthma, uncomplicated; F12.90 Cannabis use, unspecified, uncomplicated; Z23 Encounter for immunization; Z37.0 Single live birth
CPT/HCPCS: 36415; 80307; 81005; 85025; 85027; 86592; 86850; 86900; 86901; 90707; J2590; J3490

== ENCOUNTER 2016-12-31 10:55 | Day surgery (SDC) | payer MEDICAID ==
[2016-12-24 11:05] LABS: HEMATOCRIT 44.1 % (36.0-47.0); HEMOGLOBIN 14.9 g/dL (12.0-15.5); HGB HCT DIFFERENCE 0.6; MEAN CORPUSCULAR HEMOGLOBIN 28.2 pg (27.0-33.4); MEAN CORPUSCULAR HGB CONC 33.8 g/dL (32.0-36.0); MEAN CORPUSCULAR VOLUME 84 fl (80-97); RED BLOOD COUNT 5.28 10^6/uL (3.72-5.28); RED CELL DISTRIBUTION WIDTH 14.3 % (11.5-14.0); WHITE BLOOD COUNT 6.6 10^3/uL (4.0-10.5)
[2016-12-24 11:24] LABS: ANION GAP 14 (5-19); BLOOD UREA NITROGEN 9 mg/dL (7-20); CALCIUM 10.1 mg/dL (8.4-10.2); CARBON DIOXIDE 22 mmol/L (22-30); CHLORIDE 108 mmol/L (98-107); CREATININE RESULT 0.62 mg/dL (0.52-1.25); GLUCOSE 82 mg/dL (75-110); POTASSIUM 4.9 mmol/L (3.6-5.0)
[~2016-12-31 10:55] MED LIST: ACETAMINOPHEN 325 MG TABLET PO PRN; CEFAZOLIN 1 GM/D5W RTU 1 GM/50 ML RTUPB IV PRN; DEXAMETHASONE SOD PHOSPHATE INJ 4 MG/1 ML VIAL ONE; GLYCOPYRROLATE INJ 0.4 MG/2 ML VIAL ONE; LACTATED RINGERS 1000 ML IV PRN; METOCLOPRAMIDE HCL INJ/PF 10 MG/2 ML SDV ONE; ONDANSETRON HCL INJ/PF 4 MG/2 ML SDV ONE; SUCCINYLCHOLINE CHLORIDE INJ 200 MG/10 ML VIAL ONE
[2016-12-31] MEDS ORDERED: RINGERS SOLUTION,LACTATED 1,000 ML IV PRN ×2 (13:18→17:20)
[2016-12-31] MEDS ORDERED: FAMOTIDINE INJ/PF 20 MG/2 ML SDV IV ONE ×2 (13:26→13:30)
[2016-12-31] MEDS ORDERED: ALBUTEROL SULFATE 0.083% NEB 2.5 MG/3 ML AMPUL NEB ONE ×2 (13:26→13:30)
[2016-12-31] MEDS ORDERED: RINGERS SOLUTION,LACTATED 1,000 ML IV ONE (13:30)
[2016-12-31] MEDS ORDERED: SCOPOLAMINE HYDROBROMIDE 1.5 MG PATCH.TD72 TD ONE (13:30)
[2016-12-31] MEDS ORDERED: BUPIVACAINE HCL 0.25 % INJ/PF (2.5 MG/1 ML) 30 ML VIAL ONE (14:43)
[2016-12-31] MEDS ORDERED: HYDROMORPHONE HCL INJ/PF 2 MG/ML AMPULE ONE (16:12)
[2016-12-31] MEDS ORDERED: PROPOFOL INJ 200 MG/20 ML VIAL IV ONE (16:13)
[2016-12-31] MEDS ORDERED: ACETAMINOPHEN 100 ML IV ONE (16:13)
[2016-12-31] MEDS ORDERED: IBUPROFEN INJ 800 MG/8 ML VIAL IV ONE (16:13)
[2016-12-31] MEDS ORDERED: MIDAZOLAM 2 MG/2 ML INJ ONE (16:13)
[2016-12-31] MEDS ORDERED: FENTANYL CITRATE INJ/PF 100 MCG/2 ML AMPUL ONE (16:52)
[2016-12-31] MEDS ORDERED: ONDANSETRON HCL INJ/PF 4 MG/2 ML SDV IV PRN (16:58)
[2016-12-31] MEDS ORDERED: DIPHENHYDRAMINE HCL 50 MG/ML VIAL IV PRN (16:58)
[2016-12-31] MEDS ORDERED: MEPERIDINE HCL/PF INJ 25 MG/1 ML DISP.SYRIN IV PRN (16:58)
[2016-12-31] MEDS ORDERED: PROMETHAZINE HCL INJ 25 MG/1 ML VIAL IV PRN ×2 (16:58)
[2016-12-31] MEDS ORDERED: FENTANYL CITRATE INJ/PF 100 MCG/2 ML AMPUL IV PRN ×3 (16:58)
--- NOTE | 2016-12-31 17:17 | Operative Report ---
Operative Report DATE OF SURGERY: 12/31/16 PREOPERATIVE DIAGNOSIS: Umbilical hernia POSTOPERATIVE DIAGNOSIS: Umbilical hernia OPERATION: Umbilical hernia repair SURGEON: HUNTER JOHNS ANESTHESIA: GA TISSUE REMOVED OR ALTERED: Hernia sac COMPLICATIONS: None ESTIMATED BLOOD LOSS: Minimal INTRAOPERATIVE FINDINGS: Half centimeter umbilical hernia with herniated preperitoneal fat PROCEDURE: Informed consent was obtained. Patient was brought to the operating room placed on the operating room table in the supine position. After satisfactory induction of general anesthesia patient's abdomen was prepped and draped in the usual sterile fashion. Marcaine was injected. A semicircular infraumbilical incision was made dissection was carried down the hernia sac was dissected free from the surrounding structures. It was opened revealing no incarcerated contents. The hernia sac was very thickened composed of preperitoneal fat hernia sac was excised by clamping dividing and tying. Fascial defect measured about half a centimeter in size. The fascial defect was closed with interrupted Ethibond sutures. Hemostasis appeared excellent. The bellybutton attachment to the umbilical region was left intact. Skin was closed with running subcuticular Monocryl suture. Patient tolerated procedure well with no apparent complications and was taken to the recovery area in stable condition.
[2016-12-31] MEDS ORDERED: OXYCODONE-ACETAMINOPHEN 5-325 MG TABLET PO PRN (17:20)
--- NOTE | 2016-12-31 17:20 | PDOC DISCHARGE SUMMARY ---
Discharge Summary (SDC) - Discharge Final Diagnosis: Umbilical hernia Date of Surgery: 12/31/16 Discharge Date: 12/31/16 Condition: Good Treatment or Instructions: Umbilical hernia repair. May discharge patient home when met discharge criteria. Follow-up with me in 2 weeks. Stay active but avoid strenuous activity. May shower tomorrow night. Keep Steri-Strips on. Prescriptions: Oxycodone HCl/Acetaminophen [Percocet 5-325 mg Tablet] 1 tab PO ASDIR PRN #25 tablet PRN Reason: Referrals: BLACK MEHTA MD [Primary Care Provider] - Discharge Diet: As Tolerated Discharge Activity: Activity As Tolerated - Stay active but avoid strenuous activity. Report the Following to Your Physician Immediately: Fever over 101 Degrees, Unusual Bleeding, Redness, Drainage-Foul Smelling
[2016-12-31] MEDS ORDERED: OXYCODONE-ACETAMINOPHEN 5-325 MG TABLET ONE (17:58)
[2016-12-31] MEDS ORDERED: ONDANSETRON 4 MG TAB.RAPDIS ONE (18:22)
[2016-12-31 19:21] VITALS: BP 127/72
== END 2016-12-31 19:12 | disposition home or self-care (01) ==
LOC: OROUT 10:55
PROVIDERS: ATTEND Surgery
PROC: 0WQF0ZZ Repair Abdominal Wall, Open Approach (ICD-10-PCS; principal; 2016-12-31 13:00)
DX: K42.9 Umbilical hernia without obstruction or gangrene (principal); J45.909 Unspecified asthma, uncomplicated; F17.210 Nicotine dependence, cigarettes, uncomplicated; Z79.51 Long term (current) use of inhaled steroids
CPT/HCPCS: 36415; 85027; 81025; 80048; 88302 ×2; 49585; J2250; J0690; J1100; S0119; J3010; J3490 ×2; J2765; J1170; J0330; J2405; S0020; J2704; S0028; J0131; J1741; 750

== ENCOUNTER 2017-03-05 07:26 | Emergency (ER) | payer SELFPAY ==
[2017-03-05] MEDS ORDERED: DEXAMETHASONE 4 MG TABLET PO ONE (08:12)
--- NOTE | 2017-03-05 08:13 | ER Document Report ---
ED Respiratory Problem - General Chief Complaint: Breathing Difficulty Stated Complaint: BREATHING PROBLEMS Time Seen by Provider: 03/05/17 08:04 Notes: The patient is a 21-year-old female, past medical history asthma, current smoker , presents with 1 day of cough and wheezing. She used two puffs of her albuterol inhalers with some relief of her symptoms, but she is still feeling SOB. Patient denies fevers, hemoptysis, cough, chest pain, nausea, vomiting, leg swelling, recent travel or OCP use. TRAVEL OUTSIDE OF THE [place] IN LAST 30 DAYS: No - Related Data Allergies/Adverse Reactions: gluten [Gluten] Allergy (Verified 03/05/17 07:29) lactose [Lactose] Allergy (Verified 03/05/17 07:29) nickel Allergy (Verified 03/05/17 07:29) RASH Past Medical History - General Information source: Patient - Social History Smoking Status: Current Every Day Smoker Family History: None - Past Medical History Cardiac Medical History: Denies: Hx Coronary Artery Disease, Hx Heart Attack, Hx Hypertension Pulmonary Medical History: Reports: Hx Asthma Denies: Hx Bronchitis, Hx COPD, Hx Pneumonia Neurological Medical History: Denies: Hx Cerebrovascular Accident, Hx Seizures Renal/ Medical History: Denies: Hx Peritoneal Dialysis Musculoskeltal Medical History: Denies Hx Arthritis Past Surgical History: Reports: Hx Oral Surgery - Immunizations Hx Diphtheria, Pertussis, Tetanus Vaccination: Yes Review of Systems - Review of Systems Notes: REVIEW OF SYSTEMS: CONSTITUTIONAL: -fevers, -chills EENT: -eye pain, -difficulty swallowing, -nasal congestion CARDIOVASCULAR: -chest pain, -syncope. RESPIRATORY: +cough, +SOB GASTROINTESTINAL: -abdominal pain, -nausea, -vomiting, -diarrhea GENITOURINARY: -dysuria, -hematuria MUSCULOSKELETAL: -back pain, -neck pain SKIN: -rash or skin lesions. HEMATOLOGIC: -easy bruising or bleeding. LYMPHATIC: -swollen, enlarged glands. NEUROLOGICAL: -altered mental status or loss of consciousness, -headache, - neurologic symptoms PSYCHIATRIC: -anxiety, -depression. ALL OTHER SYSTEMS REVIEWED AND NEGATIVE. Physical Exam - Vital signs Vitals: Temp Pulse BP Pulse Ox 97.5 F 103 H 138/76 H 100 03/05/17 07:34 03/05/17 07:34 03/05/17 07:34 03/05/17 07:34 - Notes Notes: PHYSICAL EXAMINATION: GENERAL: Well-appearing, well-nourished and in no acute distress. HEAD: Atraumatic, normocephalic. EYES: Pupils equal round and reactive to light, extraocular movements intact, sclera anicteric, conjunctiva are normal. ENT: nares patent, oropharynx clear without exudates. Moist mucous membranes. NECK: Normal range of motion, supple without lymphadenopathy LUNGS: No respiratory distress. Mild and expiratory wheezes. HEART: Regular rate and rhythm without murmurs ABDOMEN: Soft, nontender, normoactive bowel sounds. No guarding, no rebound. No masses appreciated. EXTREMITIES: Normal range of motion, no pitting or edema. No cyanosis. NEUROLOGICAL: Cranial nerves grossly intact. Normal speech, normal gait. Normal sensory and motor exams. PSYCH: Normal mood, normal affect. SKIN: Warm, Dry, normal turgor, no rashes or lesions noted. Course - Re-evaluation Re-evalutation: Patient appears well and is in no respiratory distress. She already used her albuterol at home and is feeling better. Only end-expiratory wheezing on exam. Will provide her with a dose of Decadron and instruct her to continue the albuterol and try to stop smoking. No signs of pneumonia without fever, productive cough and crackles on exam. Considered PE, but less likely without any risk factors. Instructed her to follow-up with her primary care physician and given very strict return precautions. - Vital Signs Vital signs: Temp Pulse Resp BP Pulse Ox 97.5 F 103 H 138/76 H 100 03/05/17 07:34 03/05/17 07:34 03/05/17 07:34 03/05/17 07:34 Discharge - Discharge Clinical Impression: Wheezing Condition: Stable Disposition: HOME, SELF-CARE Additional Instructions: ASTHMA: You have been diagnosed as having asthma. This is a condition where there is episodic tightness in the bronchial tubes. Allergies, infections, and polluted or cold air may be contributing factors. Emergency treatment of a severe asthma attack may include adrenaline shots , or bronchodilator aerosol. You may feel lightheaded, have a decreased exercise tolerance and a rapid pulse for an hour or two. Rest and get plenty of fluids. Home treatment of asthma requires bronchodilator drugs. These can be administered by injection, inhalation, or by mouth. Antibiotics and corticosteroids may be required for some patients. You should avoid chemical fumes, dusts, pollens, and exercising in very cold or dry air. If you smoke, stop!! If you develop a fever, increased wheezing, chest pain, or severe shortness of breath, you should contact the doctor immediately. STEROID MEDICATION: You have been given an injection of or oral medicine of the cortisone/ steroid class. This medication is used to control inflammation or allergy. Phan t is usually only given for a short period of time, until the acute process subsides. There are usually no side effects from short-term use of cortisone-like medications. Some persons feel an increased sense of well-being and are not sleepy at bedtime. Long-term use of cortisone medications is best avoided, unless required for a severe condition. If your condition does not remit, or relapses after the course of corticosteroid medication, you should consult your physician. INHALED BRONCHODILATORS: You have received treatment(s) of and/or prescription for an inhaled bronchodilator -- a medication which stimulates the airways in the lung to dilate. This improves the flow of air in asthma, bronchitis, and emphysema. These medicines have some similarity to adrenaline, and can cause similar side effects: shakiness, racing heart, and a sense of nervousness. These side effects decrease with time. Contact your doctor if these side effects are severe. Do not over-use the medicine. Too-frequent use of the inhaler may make it ineffective. Call your doctor if the inhaler is not controlling your symptoms at the prescribed doses. SMOKING: If you smoke, you should stop smoking. The tar and chemicals in cigarette smoke are harmful. Smoking has been shown to cause: emphysema chronic bronchitis lung cancer mouth and throat cancer stomach and pancreas cancer premature aging defects In addition, smoking increases ear and lung infections in children of smokers. USE OF ACETAMINOPHEN: Acetaminophen may be taken for pain relief or fever control. It's much safer than aspirin, offering a wider range of "safe" dosages. It is safe during . Some brand names are Tylenol, Panadol, Datril, Anacin 3, Tempra, and Liquiprin. Acetaminophen can be repeated every four hours. The following are maximum recommended dosages: USE OF ACETAMINOPHEN (Tylenol): Acetaminophen may be taken for pain relief or fever control. It's much safer than aspirin, offering a wider range of "safe" dosages. It is safe during . Some brand names are Tylenol, Panadol, Datril, Anacin 3, Tempra, and Liquiprin. Acetaminophen can be repeated every four hours. The following are maximum recommended dosages: WEIGHT Dose Drops Elixir Chewable( 80mg) (LBS.) drprs=droppers tsp=teaspoon 6 40 mg 0.4 ml (1/2) 6-11 80 mg 0.8 ml (full) tsp 1 tab 12-16 120 mg 1 1/2 drprs 3/4 tsp 1 1/2 tabs 17-23 160 mg 2 drprs 1 tsp 2 tabs 24-30 240 mg 3 drprs 1 1/2 tsp 3 tabs 30-35 320 mg 2 tsp 4 tabs 36-41 360 mg 2 1/4 tsp 4 1/2 tabs 42-47 400 mg 2 1/2 tsp 5 tabs 48-53 480 mg 3 tsp 6 tabs 54-59 520 mg 3 1/4 tsp 6 1/2 tabs 60-64 560 mg 3 1/2 tsp 7 tabs 65-70 600 mg 3 3/4 tsp 7 1/2 tabs 71-76 640 mg 4 tsp 8 tabs 77-82 720 mg 4 1/2 tsp 9 tabs 83-88 800 mg 5 tsp 10 tabs >89 pounds or adults 650 mg to 900 mg Acetaminophen can be repeated every four hours. Maximum dose not to exceed 4000 mg a day. These maximum recommended dosages are slightly higher than the dosages written on the product container, but these dosages are very safe and below the toxic dosage for acetaminophen. FOLLOW-UP CARE: If you have been referred to a physician for follow-up care, call the physician s office for an appointment as you were instructed or within the next two days. If you experience worsening or a significant change in your symptoms, notify the physician immediately or return to the Emergency Department at any time for re-evaluation. Forms: Elevated Blood Pressure
[2017-03-05 08:40] VITALS: BP 126/70
== END 2017-03-05 08:40 | disposition home or self-care (01) ==
LOC: ER 07:26
DX: J45.909 Unspecified asthma, uncomplicated (principal); F17.200 Nicotine dependence, unspecified, uncomplicated; R05 Cough; R06.02 Shortness of breath; Z88.8 Allergy status to other drugs, medicaments and biological substances; Z91.018 Allergy to other foods
CPT/HCPCS: 99285

== ENCOUNTER 2017-09-21 16:19 | Emergency (ER) | payer OTHER, MEDICAID ==
[2017-09-21 16:35] VITALS: BP 126/81
[2017-09-21] MEDS ORDERED: AZITHROMYCIN 250 MG TABLET PO ONE ×2 (17:04→20:20)
[2017-09-21] MEDS ORDERED: LEVONORGESTREL 1.5 MG TABLET (1 TAB/ER-USE) PO ONE ×2 (17:04→20:21)
[2017-09-21] MEDS ORDERED: CEFTRIAXONE INJ 250 MG VIAL IM ONE ×2 (17:04→20:21)
[2017-09-21] MEDS ORDERED: PROMETHAZINE HCL 25 MG TABLET PO ONE ×2 (17:04→20:22)
[2017-09-21] MEDS ORDERED: METRONIDAZOLE 500 MG TABLET PO ONE (17:04)
[2017-09-21] MEDS ORDERED: LIDOCAINE 1% INJ-PF (10 MG/ML) 30 ML SDV INJ ONE (17:04)
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
[2017-09-21 17:41] LABS: ABSOLUTE EOSINOPHILS # (AUTO) 0.2 10^3/uL (0.0-0.6); ABSOLUTE LYMPHOCYTES (AUTO) 1.6 10^3/uL (0.5-4.7); ABSOLUTE MONOCYTES (AUTO) 0.5 10^3/uL (0.1-1.4); ABSOLUTE NEUT (AUTO) 5.2 10^3/uL (1.7-8.2); BASOPHILS % (AUTO) 0.6 % (0-2); EOSINOPHILS % (AUTO) 2.9 % (0-6); HEMATOCRIT 41.4 % (36.0-47.0); HEMOGLOBIN 14.1 g/dL (12.0-15.5); MEAN CORPUSCULAR HEMOGLOBIN 28.6 pg (27.0-33.4); MEAN CORPUSCULAR HGB CONC 34.1 g/dL (32.0-36.0); MEAN CORPUSCULAR VOLUME 84 fl (80-97); MONOCYTES % (AUTO) 6.5 % (3-13); PLATELET COUNT 304 10^3/uL (150-450); RED BLOOD COUNT 4.93 10^6/uL (3.72-5.28); RED CELL DISTRIBUTION WIDTH 13.8 % (11.5-14.0); TOTAL CELLS COUNTED % (AUTO) 100 %; WHITE BLOOD COUNT 7.5 10^3/uL (4.0-10.5)
[2017-09-21 18:10] LABS: ALANINE AMINOTRANSFERASE 26 U/L (9-52); ALBUMIN 4.4 g/dL (3.5-5.0); ALKALINE PHOSPHATASE 55 U/L (38-126); ANION GAP 12 (5-19); ASPARTATE AMINO TRANSFERASE 21 U/L (14-36); BILIRUBIN,DIRECT 0.2 mg/dL (0.0-0.4); BILIRUBIN,TOTAL 0.6 mg/dL (0.2-1.3); BLOOD UREA NITROGEN 10 mg/dL (7-20); CALCIUM 9.7 mg/dL (8.4-10.2); CARBON DIOXIDE 25 mmol/L (22-30); CHLORIDE 107 mmol/L (98-107); GLUCOSE 89 mg/dL (75-110); POTASSIUM 3.9 mmol/L (3.6-5.0); SODIUM 144.4 mmol/L (137-145)
[2017-09-21 19:12] LABS: BACTERIA (WET MOUNT) 4+ BACTERIA SEEN; EPITHELIALS (WET MOUNT) 4+ EPITHELIALS SEEN; T.VAGINALIS (WET MOUNT) NO TRICHOMONAS SEEN; WBCS (WET MOUNT) 1+ WBCS SEEN; YEAST (WET MOUNT) NO YEAST SEEN
[2017-09-21] MEDS ORDERED: LIDOCAINE 1% INJ-PF (10 MG/ML) 30 ML SDV INFIL ONE (20:21)
[2017-09-21 20:42] LABS: CHLAM PCR NOT DETECTED (NOT DETECT); GON PCR NOT DETECTED (NOT DETECT)
[2017-09-23 06:39] LABS: HEPATITIS A AB IGM Negative (Negative); HEPATITIS B CORE AB IGM Negative (Negative); HEPATITS B SURFACE ANTIGEN Negative (Negative)
[2017-09-23 08:52] LABS: HEPATITIS C VIRUS ANTIBODY <0.1 s/co ratio (0.0-0.9)
== END 2017-09-21 22:00 | disposition home or self-care (01) ==
LOC: ER 16:19
DX: T74.21XA Adult sexual abuse, confirmed, initial encounter (principal); S80.02XA Contusion of left knee, initial encounter; S50.12XA Contusion of left forearm, initial encounter; S50.11XA Contusion of right forearm, initial encounter; X58.XXXA Exposure to other specified factors, initial encounter
CPT/HCPCS: 99285; 96372; 36415; 87210; 85025; 81025; 86592; 80053; 87491; 87591; 86701; 86702; 80074; A9270; J3490; J0696

== ENCOUNTER 2018-01-18 02:18 | Emergency (ER) | payer MEDICAID, OTHER ==
[2018-01-18] MEDS ORDERED: IBUPROFEN 400 MG TABLET PO ONE (02:35)
[2018-01-18] MEDS ORDERED: DEXAMETHASONE SOD PHOS INJ 10 MG/1 ML VIAL IM ONE (02:36)
--- NOTE | 2018-01-18 02:41 | ER Document Report ---
ED ENT - General Chief Complaint: Sore Throat Stated Complaint: SORE THROAT Time Seen by Provider: 01/18/18 02:29 Notes: Patient is a 22-year-old female that comes to the emergency department for chief complaint of a very sore throat, swollen lymph nodes in her neck, fever, and body aches for the past 2 days. She states she has had repeated strep throat infections, she states that she was told if she got 1 more infection of strep that she would be referred for tonsillectomy. She therefore wants to be tested for strep. She denies any noted cough or congestion, denies vomiting, denies any other symptoms. She denies , denies any daily medications. TRAVEL OUTSIDE OF THE [place] IN LAST 30 DAYS: No - Related Data Allergies/Adverse Reactions: gluten [Gluten] Allergy (Verified 01/18/18 02:20) lactose [Lactose] Allergy (Verified 01/18/18 02:20) nickel Allergy (Verified 01/18/18 02:20) RASH No Known Drug Allergies Allergy (Verified 01/18/18 02:20) Past Medical History - General Information source: Patient - Social History Smoking Status: Never Smoker Drug Abuse: None Lives with: Family Family History: None - Past Medical History Cardiac Medical History: Denies: Hx Coronary Artery Disease, Hx Heart Attack, Hx Hypertension Pulmonary Medical History: Reports: Hx Asthma Denies: Hx Bronchitis, Hx COPD, Hx Pneumonia Neurological Medical History: Denies: Hx Cerebrovascular Accident, Hx Seizures Renal/ Medical History: Denies: Hx Peritoneal Dialysis Musculoskeletal Medical History: Denies Hx Arthritis Past Surgical History: Reports: Hx Oral Surgery - Immunizations Immunizations up to date: Yes Hx Diphtheria, Pertussis, Tetanus Vaccination: Yes Review of Systems - Review of Systems Constitutional: See HPI EENT: See HPI Cardiovascular: No symptoms reported Respiratory: No symptoms reported Gastrointestinal: No symptoms reported Genitourinary: No symptoms reported Female Genitourinary: No symptoms reported Musculoskeletal: No symptoms reported Skin: No symptoms reported Hematologic/Lymphatic: No symptoms reported Neurological/Psychological: No symptoms reported Physical Exam - Vital signs Vitals: Temp Pulse Resp BP Pulse Ox 101.1 F H 135 H 18 140/87 H 100 01/18/18 02:23 01/18/18 02:23 01/18/18 02:23 01/18/18 02:23 01/18/18 02:23 - Notes Notes: GENERAL: Mildly ill-appearing, flushed, however she is alert and interactive HEAD: Normocephalic, atraumatic. EYES: Pupils equal, round, and reactive to light. Extraocular movements intact. ENT: Oral mucosa moist, tongue midline. Tonsillitis with exudates, no uvula swelling, no peritonsillar abscess, normal tongue, unremarkable oropharyngeal exam otherwise. Airway patent. Nares patent, no nasal septal hematoma, TM's intact. NECK: Full range of motion. Trachea midline. Bilateral noted anterior cervical adenopathy with some tenderness. No swelling of the submandibular area. LUNGS: Clear to auscultation bilaterally, no wheezes, rales, or rhonchi. No respiratory distress. HEART: Regular rate and rhythm. No murmur ABDOMEN: Soft, non-tender. Non-distended. Bowel sounds present in all 4 quadrants. GENITOURINARY: Deferred EXTREMITIES: Moves all 4 extremities spontaneously. No edema, normal radial and dorsalis pedis pulses bilaterally. No cyanosis. BACK: no cervical, thoracic, lumbar midline tenderness. No saddle anesthesia, normal distal neurovascular exam. NEUROLOGICAL: Alert and oriented x3. Normal speech. [cranial nerves II through XII grossly intact]. PSYCH: Normal affect, normal mood. SKIN: Flushed, hot skin. No rashes or lesions noted. Course - Re-evaluation Re-evalutation: Patient with obvious strep pharyngitis with tonsillitis but no evidence of peritonsillar abscess, no Cleveland's angina, she does have anterior cervical adenopathy, she is tachycardic and febrile. Strep test is positive. After fever is broken patient's heart rate is starting to come down, she is clinically dry on exam, offered IV fluid rehydration, patient states she feels much better after simply ibuprofen, she requests to drink water at home and be discharged now. She denies dizziness or lightheadedness. She denies any current symptoms other than mild sore throat. She has not had any chest pain or shortness of breath. Patient elects to have penicillin G instead of oral antibiotics, she has been given dexamethasone as well. Discussed follow-up and return precautions with patient in detail, provided her with a copy of her positive test so she can follow-up with ENT. Patient states understanding and agreement with plan. - Vital Signs Vital signs: Temp Pulse Resp BP Pulse Ox 99.4 F 123 H 16 133/83 H 99 01/18/18 03:33 01/18/18 03:33 01/18/18 03:33 01/18/18 03:33 01/18/18 03:33 Discharge - Discharge Clinical Impression: Strep pharyngitis, Anterior cervical adenopathy Condition: Stable Disposition: HOME, SELF-CARE Additional Instructions: You have strep throat. You were treated for this with penicillin G and dexamethasone. Take Tylenol or ibuprofen for fever, drink plenty of fluids, and rest. Follow-up with primary care. Return for any concerning or worsening symptoms including difficulty swallowing or breathing or any other concerning or worsening symptoms. Referrals: ZIGGY FLORES DO [ASSOCIATE] - Follow up as needed
[2018-01-18] MEDS ORDERED: PENICILLIN G BENZATHINE 1.2 MILLION UNIT/2 ML DISP.SYRIN IM ONE (03:25)
[2018-01-18 03:38] VITALS: BP 133/83
== END 2018-01-18 03:45 | disposition home or self-care (01) ==
LOC: ER 02:18
DX: J02.0 Streptococcal pharyngitis (principal); R59.0 Localized enlarged lymph nodes; J45.909 Unspecified asthma, uncomplicated
CPT/HCPCS: 99283; 96372; 87880; J3490; J0561; J1100

== ENCOUNTER 2018-02-11 03:06 | Emergency (ER) | payer SELFPAY ==
[2018-02-11] MEDS ORDERED: NORMAL SALINE 1000 ML 1,000 ML IV ONE ×2 (03:28→05:15)
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
[2018-02-11 06:43] LABS: ABSOLUTE EOSINOPHILS # (AUTO) 0.1 10^3/uL (0.0-0.6); ABSOLUTE MONOCYTES (AUTO) 0.5 10^3/uL (0.1-1.4); ABSOLUTE NEUT (AUTO) 12.2 10^3/uL (1.7-8.2); BASOPHILS % (AUTO) 0.3 % (0-2); EOSINOPHILS % (AUTO) 0.4 % (0-6); HEMATOCRIT 41.3 % (36.0-47.0); LYMPHOCYTES % (AUTO) 7.2 % (13-45); MEAN CORPUSCULAR HEMOGLOBIN 28.8 pg (27.0-33.4); MEAN CORPUSCULAR VOLUME 85 fl (80-97); MONOCYTES % (AUTO) 3.6 % (3-13); PLATELET COUNT 284 10^3/uL (150-450); RED BLOOD COUNT 4.88 10^6/uL (3.72-5.28); RED CELL DISTRIBUTION WIDTH 14.6 % (11.5-14.0); SEGMENTED NEUTROPHILS % (AUTO) 88.5 % (42-78); TOTAL CELLS COUNTED % (AUTO) 100 %; WHITE BLOOD COUNT 13.8 10^3/uL (4.0-10.5)
[2018-02-11 07:06] LABS: ALANINE AMINOTRANSFERASE 29 U/L (9-52); ALBUMIN 4.5 g/dL (3.5-5.0); ALCOHOL 52 mg/dL (NONE DETECTED); ALKALINE PHOSPHATASE 68 U/L (38-126); ANION GAP 12 (5-19); ASPARTATE AMINO TRANSFERASE 26 U/L (14-36); BILIRUBIN,DIRECT 0.2 mg/dL (0.0-0.4); BILIRUBIN,TOTAL 0.4 mg/dL (0.2-1.3); BLOOD UREA NITROGEN 8 mg/dL (7-20); CALCIUM 9.7 mg/dL (8.4-10.2); CARBON DIOXIDE 23 mmol/L (22-30); CHLORIDE 106 mmol/L (98-107); GLUCOSE 93 mg/dL (75-110); SODIUM 141.4 mmol/L (137-145)
[2018-02-11 07:35] LABS: URINE BARBITURATES SCREEN NEGATIVE; URINE BENZODIAZEPINES SCREEN NEGATIVE; URINE COCAINE SCREEN NEGATIVE; URINE MARIJUANA (THC) SCREEN UNCONFIRMED POSITIVE; URINE METHADONE SCREEN NEGATIVE; URINE PHENCYCLIDINE SCREEN NEGATIVE
--- NOTE | 2018-02-11 07:44 | EKG REPORT ---
SEVERITY:- ABNORMAL ECG - ACCELERATED JUNCTIONAL RHYTHM BORDERLINE PROLONGED QT INTERVAL : Confirmed by: Jeet Castelan MD 11-Feb-2018 07:43:10
[2018-02-11 08:38] VITALS: BP 119/73
[2018-02-11 09:47] LABS: ACETAMINOPHEN < 10 ug/mL (10-30); SALICYLATE < 1.0 mg/dL (2.0-20.0)
== END 2018-02-11 08:36 | disposition home or self-care (01) ==
LOC: ER 03:06
DX: R11.2 Nausea with vomiting, unspecified (principal); F12.90 Cannabis use, unspecified, uncomplicated; Z72.89 Other problems related to lifestyle; F17.210 Nicotine dependence, cigarettes, uncomplicated; R42 Dizziness and giddiness; R53.1 Weakness; R00.0 Tachycardia, unspecified; J45.909 Unspecified asthma, uncomplicated; Z91.018 Allergy to other foods; Z91.048 Other nonmedicinal substance allergy status
CPT/HCPCS: 93005; 99284; 96360; 96361; 36415; 80307 ×5; 84703; 85025; 80053; 93010; G0480; J7030

== ENCOUNTER 2018-02-26 11:42 | Emergency (ER) | payer OTHER ==
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
[2018-02-26 14:57] VITALS: BP 107/61
== END 2018-02-26 14:58 | disposition home or self-care (01) ==
LOC: ER 11:42
DX: S16.1XXA Strain of muscle, fascia and tendon at neck level, initial encounter (principal); S20.211A Contusion of right front wall of thorax, initial encounter; S40.021A Contusion of right upper arm, initial encounter; M54.9 Dorsalgia, unspecified; V89.2XXA Person injured in unspecified motor-vehicle accident, traffic, initial encounter
CPT/HCPCS: 71046; 72040; 99283

== ENCOUNTER 2018-08-12 13:06 | Emergency (ER) | payer MEDICAID, OTHER ==
[2018-08-12] MEDS ORDERED: ACETAMINOPHEN 325 MG TABLET PO ONE (14:39)
[2018-08-12] MEDS ORDERED: NORMAL SALINE 1000 ML 1,000 ML IV ONE ×2 (14:39→18:42)
--- NOTE | 2018-08-12 14:41 | ER Document Report ---
ED Medical Screen (RME) - General Chief Complaint: Sore Throat Stated Complaint: SORE THROAT,ABDOMINAL PAIN Time Seen by Provider: 08/12/18 14:30 Primary Care Provider: JESSE GARZA MD [Primary Care Provider] - Follow up as needed Notes: Patient presents complaining of sore throat for the past 2 days. Patient also complains of lower abdominal pain for several weeks with spotting. Patient states her last menstrual period was 2 months ago. Patient is concerned about possible ectopic . I have greeted and performed a rapid initial assessment of this patient. A comprehensive ED assessment and evaluation of the patient, analysis of test results and completion of the medical decision making process will be conducted by additional ED providers. TRAVEL OUTSIDE OF THE [place] IN LAST 30 DAYS: No - Related Data Allergies/Adverse Reactions: gluten [Gluten] Allergy (Verified 01/18/18 02:20) lactose [Lactose] Allergy (Verified 01/18/18 02:20) nickel Allergy (Verified 01/18/18 02:20) RASH Past Medical History Pulmonary Medical History: Reports: Hx Asthma Neurological Medical History: Denies: Hx Cerebrovascular Accident, Hx Seizures Renal/ Medical History: Denies: Hx Peritoneal Dialysis Musculoskeltal Medical History: Denies Hx Arthritis Past Surgical History: Reports: Hx Abdominal Surgery - hernia repair, Hx Oral Surgery - Immunizations Immunizations up to date: Yes Hx Diphtheria, Pertussis, Tetanus Vaccination: Yes History of Influenza Vaccine for 11/2016 - 04/2017 Season: Yes Influenza Administration Date for 11/2016 - 04/2017 Season: 11/08/16 Physical Exam - Vital signs Vitals: Temp Pulse Resp BP Pulse Ox 97.9 F 118 H 18 152/74 H 100 08/12/18 13:12 08/12/18 13:12 08/12/18 13:12 08/12/18 13:12 08/12/18 13:12 - HEENT Pharynx: Erythema, Exudate, Tonsillar hypertrophy Course - Vital Signs Vital signs: Temp Pulse Resp BP Pulse Ox 97.9 F 118 H 18 152/74 H 100 08/12/18 13:12 08/12/18 13:12 08/12/18 13:12 08/12/18 13:12 08/12/18 13:12 Doctor's Discharge - Discharge Referrals: GREG,JESSE, MD [Primary Care Provider] - Follow up as needed
[2018-08-12 15:42] LABS: HEMATOCRIT 38.1 % (36.0-47.0); HEMOGLOBIN 12.6 g/dL (12.0-15.5); MEAN CORPUSCULAR HEMOGLOBIN 27.7 pg (27.0-33.4); MEAN CORPUSCULAR HGB CONC 33.2 g/dL (32.0-36.0); MEAN CORPUSCULAR VOLUME 83 fl (80-97); PLATELET COUNT 263 10^3/uL (150-450); RED BLOOD COUNT 4.57 10^6/uL (3.72-5.28); RED CELL DISTRIBUTION WIDTH 14.1 % (11.5-14.0); WHITE BLOOD COUNT 16.5 10^3/uL (4.0-10.5)
[2018-08-12 15:43] LABS: APPEARANCE,URINE SLIGHTLY-CLOUDY; BILIRUBIN,URINE NEGATIVE (NEGATIVE); GLUCOSE, URINE 50 mg/dL (NEGATIVE); KETONES,URINE 80 mg/dL (NEGATIVE); LEUKOCYTE ESTERASE,URINE NEGATIVE (NEGATIVE); NITRITE,URINE NEGATIVE (NEGATIVE); PROTEIN,URINE 30 mg/dL (NEGATIVE); URINE SPECIFIC GRAVITY 1.029; UROBILINOGEN,URINE NEGATIVE mg/dL (<2.0)
[2018-08-12 15:47] LABS: COLOR,URINE YELLOW
[2018-08-12 15:56] LABS: ALANINE AMINOTRANSFERASE 72 U/L (9-52); ALBUMIN 4.2 g/dL (3.5-5.0); ALKALINE PHOSPHATASE 60 U/L (38-126); ANION GAP 10 (5-19); ASPARTATE AMINO TRANSFERASE 53 U/L (14-36); BILIRUBIN,DIRECT 0.2 mg/dL (0.0-0.4); BILIRUBIN,TOTAL 0.4 mg/dL (0.2-1.3); BLOOD UREA NITROGEN 6 mg/dL (7-20); CALCIUM 9.5 mg/dL (8.4-10.2); CARBON DIOXIDE 24 mmol/L (22-30); CHLORIDE 103 mmol/L (98-107); GLUCOSE 89 mg/dL (75-110); POTASSIUM 3.7 mmol/L (3.6-5.0); SODIUM 136.7 mmol/L (137-145); TOTAL PROTEIN 6.7 g/dL (6.3-8.2)
[2018-08-12 15:58] LABS: ABSOLUTE LYMPHOCYTES# (MANUAL) 1.2 10^3/uL (0.5-4.7); ABSOLUTE MONOCYTES # (MANUAL) 0.5 10^3/uL (0.1-1.4); BAND NEUTROPHILS % (MANUAL) 6 % (3-5); BASOPHILS % (MANUAL) 0 % (0-2); EOSINOPHILS % (MANUAL) 0 % (0-6); LYMPHOCYTES % (MANUAL) 7 % (13-45); MONOCYTES % (MANUAL) 3 % (3-13); PLATELET COMMENT ADEQUATE; SEGMENTED NEUTROPHILS % (MAN) 84 % (42-78); TOTAL CELLS COUNTED 100
[2018-08-12 16:00] LABS: ANISOCYTOSIS SLIGHT; POIKILOCYTOSIS SLIGHT
[2018-08-12] MEDS ORDERED: PENICILLIN G BENZATHINE 1.2 MILLION UNIT/2 ML DISP.SYRIN IM ONE (18:43)
[2018-08-12 18:44] VITALS: BP 105/61
[2018-08-12] MEDS ORDERED: CEFTRIAXONE 1 GM/D5W RTU 1 GM/50 ML RTUPB IV ONE (19:15)
[2018-08-12] MEDS ORDERED: DEXAMETHASONE SOD PHOS INJ 10 MG/1 ML VIAL IV ONE (19:17)
--- NOTE | 2018-08-12 19:21 | ER Document Report ---
ED General - General Chief Complaint: Sore Throat Stated Complaint: SORE THROAT,ABDOMINAL PAIN Time Seen by Provider: 08/12/18 14:30 Primary Care Provider: JESSE GARZA MD [Primary Care Provider] - Follow up as needed Mode of Arrival: Ambulatory Information source: Patient Notes: This is a 23-year-old female who presents to the emergency room with sore throat, subjective fevers, chills. She also reports that she has had some crampy lower abdominal pain along with intermittent vaginal bleeding. Her last normal menstrual period was May. She is sexually active and is concerned she may be . TRAVEL OUTSIDE OF THE [place] IN LAST 30 DAYS: No - HPI Onset: Last week Onset/Duration: Gradual Quality of pain: Dull Severity: Moderate Pain Level: 2 Associated symptoms: Fever. denies: Chest pain, Shortness of breath Exacerbated by: Denies Relieved by: Denies Similar symptoms previously: No Recently seen / treated by doctor: No - Related Data Allergies/Adverse Reactions: gluten [Gluten] Allergy (Verified 01/18/18 02:20) lactose [Lactose] Allergy (Verified 01/18/18 02:20) nickel Allergy (Verified 01/18/18 02:20) RASH Past Medical History - General Information source: Patient - Social History Smoking Status: Current Every Day Smoker Cigarette use (# per day): Yes - Half a pack per day smoking Chew tobacco use (# tins/day): No Frequency of alcohol use: Rare Drug Abuse: None Lives with: Family Family History: None, Reviewed & Not Pertinent Patient has suicidal ideation: No Patient has homicidal ideation: No - Past Medical History Cardiac Medical History: Reports: None Pulmonary Medical History: Reports: Hx Asthma Neurological Medical History: Denies: Hx Cerebrovascular Accident, Hx Seizures Renal/ Medical History: Denies: Hx Peritoneal Dialysis Musculoskeletal Medical History: Denies Hx Arthritis Past Surgical History: Reports: Hx Abdominal Surgery - hernia repair, Hx Oral Surgery - Immunizations Immunizations up to date: Yes Hx Diphtheria, Pertussis, Tetanus Vaccination: Yes Review of Systems - Review of Systems Constitutional: Chills, Fever EENT: Throat pain Cardiovascular: No symptoms reported Respiratory: No symptoms reported Gastrointestinal: See HPI Genitourinary: No symptoms reported Female Genitourinary: No symptoms reported Musculoskeletal: No symptoms reported Skin: No symptoms reported Hematologic/Lymphatic: No symptoms reported Neurological/Psychological: No symptoms reported Physical Exam - Vital signs Vitals: Temp Pulse Resp BP Pulse Ox 97.9 F 118 H 18 152/74 H 100 08/12/18 13:12 08/12/18 13:12 08/12/18 13:12 08/12/18 13:12 08/12/18 13:12 Notes: Physical exam: GENERAL: Patient is alert and oriented x3, no acute distress. HEAD: Atraumatic, normocephalic. EYES: Pupils equal round and reactive to light, extraocular movements intact, sclera anicteric, conjunctiva are normal. ENT: TMs normal, Oropharynx reveals erythematous tonsils which are swollen bilaterally with exudates. Patient is able to handle secretions. There is no unilateral swelling or evidence of abscess. Moist mucous membranes. NECK: Normal range of motion, supple without obvious mass or JVD. LUNGS: Breath sounds clear to auscultation bilaterally and equal. No wheezes rales or rhonchi. HEART: Regular rate and rhythm without murmurs, rubs or gallops. ABDOMEN: Soft, normoactive bowel sounds. Patient does have tenderness to the left adnexa. There is no rebound. EXTREMITIES: Normal range of motion, no pitting or edema. No clubbing or cyanosis. NEUROLOGICAL: Cranial nerves II through XII grossly intact. Normal speech, moving all extremities. PSYCH: Normal mood, normal affect. SKIN: Warm, Dry, normal turgor, no rashes or lesions noted. Head side ultrasound: No free fluid in the abdomen. There is an intrauterine gestation. Unable to see the left adnexa which is where the patient's tenderness seems to be most. Course - Vital Signs Vital signs: Temp Pulse Resp BP Pulse Ox 98.5 F 87 20 105/61 100 08/12/18 18:43 08/12/18 18:43 08/12/18 18:43 08/12/18 18:43 08/12/18 18:43 - Laboratory Result Diagrams: 08/12/18 15:03 08/12/18 15:03 Laboratory results interpreted by me: 08/12/18 08/12/18 08/12/18 15:00 15:03 15:03 WBC 16.5 H RDW 14.1 H Seg Neuts % (Manual) 84 H Band Neutrophils % 6 H Lymphocytes % (Manual) 7 L Abs Neuts (Manual) 14.9 H Sodium 136.7 L BUN 6 L Creatinine 0.43 L AST 53 H ALT 72 H Lipase 20.0 L Serum HCG, Qual Beta HCG, Quant Urine Protein 30 H Urine Glucose (UA) 50 H Urine Ketones 80 H Urine Blood SMALL H 08/12/18 08/12/18 15:03 15:03 WBC RDW Seg Neuts % (Manual) Band Neutrophils % Lymphocytes % (Manual) Abs Neuts (Manual) Sodium BUN Creatinine AST ALT Lipase Serum HCG, Qual POSITIVE H Beta HCG, Quant 99972.00 H Urine Protein Urine Glucose (UA) Urine Ketones Urine Blood - Diagnostic Test Radiology reviewed: Image reviewed, Reports reviewed - Ultrasound shows a viable IUP Discharge - Discharge Clinical Impression: Tonsillitis, Intrauterine , Round ligament pain Condition: Stable Disposition: HOME, SELF-CARE Additional Instructions: As we discussed, the strep test of your throat was positive. You do have tonsillitis. You were given an IM shot of penicillin. Additionally, wrote a prescription for penicillin: Take as prescribed. You can start the penicillin tomorrow morning Use your inhaler as needed. Drink plenty of fluids and stay hydrated. Follow up with your primary care doctor. Bring a copy of today's labs with you. If you continue to have sore throat, have your primary care doctor retest you for mono (this is sometimes negative initially). As far as the ultrasound: There was no evidence of an ectopic . You do have a viable intrauterine just under 10 weeks old. Rest, avoid heavy lifting. Follow-up with an OB doctor. Return to the emergency room for worsening pain or worsening bleeding or any co ncerns or getting worse. Prescriptions: Penicillin V Potassium [Penicillin Vk 500 mg Tablet] 500 mg PO QID #28 tablet Referrals: JESSE GARZA MD [Primary Care Provider] - Follow up as needed
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
--- NOTE | 2018-08-12 19:55 | RADIOLOGY REPORT (SQ) ---
EXAM DESCRIPTION: U/S [id number] TRNABD 1GES W/ODOP COMPLETED DATE/TIME: 08/12/2018 7:46 pm REASON FOR STUDY: pelvic pain COMPARISON: None. TECHNIQUE: Transabdominal static and realtime grayscale images acquired of the pelvis. Additional se lected spectral and color Doppler images recorded. All images stored on PACs. bHCG: Pending. CLINICAL DATES: 9 weeks 5 days LIMITATIONS: None. FINDINGS: FETUS: Single Living intrauterine . ULTRASOUND EGA: 9 weeks 1 day ULTRASOUND HARITHA: 03/16/2019 EFW: Not applicable less than 20 weeks. CRL: 2.45 cm FHR: 178 beats per minute. SURVEY: Too early to assess. AMNIOTIC FLUID: Adequate amount. PLACENTA: Not yet developed due to early gestation. SUBCHORIONIC BLEED: Yes 1.8 x 1.5 x 0.3 cm SIZE OF BLEED: 1.8 x 1.5 x 0.3 cm UTERUS: No masses. No anomalies. CERVICAL LENGTH: 2.8 cm Closed. RIGHT ADNEXA: Normal ovary with normal vascular flow. No adnexal free fluid. No adnexal masses. LEFT ADNEXA: Normal ovary with normal vascular flow. No adnexal free fluid. No adnexal masses. FREE FLUID: None. OTHER: No other significant finding. IMPRESSION: LIVING INTRAUTERINE . EGA 9 weeks 1 day gestation. Subchorionic bleed. Trimester of : First - 0 to 13 weeks. TECHNICAL DOCUMENTATION: JOB ID: [id number] [employer]- All Rights Reserved rev Reading location - IP/workstation name: [email or web address]
[2018-08-12] MEDS ORDERED: ALBUTEROL SULFATE HFA (90 MCG/PUFF) 8 GM MDI (1 MDI/ER DISP) IH PRN (21:24)
== END 2018-08-12 22:14 | disposition home or self-care (01) ==
LOC: ER 13:06
DX: O46.91 Antepartum hemorrhage, unspecified, first trimester (principal); O26.891 Other specified pregnancy related conditions, first trimester; J03.90 Acute tonsillitis, unspecified; J02.9 Acute pharyngitis, unspecified; R50.9 Fever, unspecified; R10.30 Lower abdominal pain, unspecified; Z3A.09 9 weeks gestation of pregnancy; F17.210 Nicotine dependence, cigarettes, uncomplicated; O99.511 Diseases of the respiratory system complicating pregnancy, first trimester; J45.909 Unspecified asthma, uncomplicated
CPT/HCPCS: 99283; 96372; 96361; 96374; 36415; 87880; 84702; 83690; 84703; 85025; 86308; 80053; 81001; 76801; 76705; J3490 ×2; J0561; J7030; J1100